=== PATIENT | female | born 1950 | race Caucasian/White ===

== ENCOUNTER 2016-05-30 13:42 | Inpatient (IN) ==
--- NOTE | 2016-05-30 15:03 | Emergency Department Note ---
Disposition Clinical Impression: Acute exacerbation of CHF (congestive heart failure) Qualifiers: Congestive heart failure type: unspecified congestive heart failure type Qualified Code(s): I50.9 - Heart failure, unspecified Disposition: Admitted As Inpatient Condition: Fair Referrals: Deny Thomas MD [Primary Care Provider] - Forms: ED Satisfaction Letter Time of Disposition: 18:10 SOB HPI - General Chief Complaint: ED Shortness of Breath/Dyspnea Stated Complaint: ELVIE x5 days Time Seen by Provider: 05/30/16 14:30 Source: patient Limitations: no limitations Nursing Notes Reviewed: Yes Vital Signs Reviewed: Yes - History of Present Illness [id number] hx of CHF Congenital HD subaortic membrane, patient has a history of diastolic heart failure, patient came here on the bus complaining of shortness of breath for the last 45 days. Patient has HCTZ, but does not take any Lasix for diuresis. Patient states that she has also had a productive cough for last couple of weeks and is concerned about pneumonia. Patient states that she is on BiPAP at night, but is not been on any oxygen previously. She has some chest pain a few days ago but currently denies any chest pain. Patient denies nausea vomiting diarrhea constipation. Pt Subjective Complaint: shortness of breath, cough, chest pain Onset (ago): day(s) (last night) Severity: mild Improves with: oxygen Known history of: congestive heart failure Associated symptoms: Reports: chest pain, cough. Denies: wheezing, sputum production Treatment prior to arrival: oxygen Cough present: No - Related Data Home Medications Medication Instructions Recorded Confirmed Albuterol Neb [Proventil Neb] 2.5 mg IH QID PRN 05/30/16 05/30/16 Albuterol Sulfate [Albuterol 2 puff IH Q6H PRN 05/30/16 05/30/16 Inhaler] Aspirin Enteric Coated [Aspirin EC] 81 mg PO DAILY 05/30/16 05/30/16 BuPROPion XL (24 HR) [Wellbutrin 150 mg PO BID 05/30/16 05/30/16 XL] Ergocalciferol (VITAMIN D2) 50,000 unit PO TH 05/30/16 05/30/16 [Vitamin D2] Flaxseed/Omega3,6,9/Fatty Acid 1 each PO BID 05/30/16 05/30/16 [Flax Seed Oil 1,300 mg Softgel] Hydrochlorothiazide 25 mg PO DAILY 05/30/16 05/30/16 [Hydrochlorothiazide] Insulin NPH Human Isophane 40 unit SQ BID 05/30/16 05/30/16 [Novolin N] Levothyroxine [Synthroid] 75 mcg PO 0630 05/30/16 05/30/16 Lisinopril [Zestril] 20 mg PO BID 05/30/16 05/30/16 Metformin [Glucophage] 500 mg PO BIDWM 05/30/16 05/30/16 Metoprolol [Lopressor] 25 mg PO BID 05/30/16 05/30/16 Multivit-Min/Folic Acid/Vit K1 1 each PO DAILY 05/30/16 05/30/16 [Multi For Her 50 Plus Softgel] Paroxetine HCl [Paroxetine HCl] 30 mg PO QAM 05/30/16 05/30/16 Pregabalin [Lyrica] 50 mg PO BID 05/30/16 05/30/16 Vitamin B Complex 1 each PO DAILY 05/30/16 05/30/16 Allergies Allergy/AdvReac Type Severity Reaction Status Date / Time cephalexin [From Keflex] Allergy Rash Verified 03/22/15 04:48 ciprofloxacin [From Cipro] Allergy Rash Verified 03/22/15 04:48 Sulfa (Sulfonamide Allergy Rash Verified 03/22/15 04:48 Antibiotics) tetanus immune globulin Allergy See Verified 03/22/15 04:48 Comments codeine AdvReac Hallucinati Verified 02/14/16 08:12 ng All systems ED: reviewed and negative except as stated. Constitutional: Denies: fever, chills Cardiovascular: Reports: as per HPI, chest pain. Denies: palpitations Respiratory: Reports: as per HPI, cough, dyspnea, sputum production. Denies: wheezes, hemoptysis Gastrointestinal: Denies: abdominal pain, nausea, vomiting Past Medical History - Past Medical History Attestation: Yes The following information was validated with the patient. Source: patient Medical history: Reports: asthma, CHF, COPD, diabetes, GERD, hypertension, kidney stones, thyroid disease, syncope Surgical history: Reports: hysterectomy, other Psychiatric history: Reports: anxiety, depression - Social History Smoking Status: Never smoker Smokeless Tobacco Status: No Alcohol use: Reports: none Drug use: Reports: none Physical Exam Constitutional: Bee sting male appears in no acute distress, is mildly uncomfortable, hypoxic with an O2 sat of 93% on 3 L. Neck: normal inspection, neck is supple, trachea midline no evidence of JVD. No hepatojugular reflex. Resp: Diminished breath sounds bilaterally at the bases, coarse crackles bibasilar CV: diminished heart sounds, regular rate and rhythm. GI: normal inspection, Soft, NTND, BS present Back: normal inspection, no tenderness to palpation Skin: No rashes, skin warm, dry, intact - General Limitations: no limitations General appearance: alert Course Course Narrative: 65-year-old female appears of CHF exacerbation versus pneumonia, chest pain workup ordered including chest x-ray and reassess the patient, I do suspect that she is mildly hypoxic, but she is able to rotate without oxygen she likely can be admitted to the hospital. - Reevaluation(s) Reevaluation #1: Chest x-ray shows bibasilar pleural effusions, elevated BNP, given her hypoxia will admit hospitalist for diuresis, given 60 mg IV diuretic, and Nitropaste will reassess patient. Time: 18:08 Vital Signs Temperature 97.8 F 05/30/16 13:48 Pulse Rate 60 05/30/16 13:48 Respiratory Rate 24 05/30/16 13:48 Blood Pressure 200/76 05/30/16 13:48 O2 Sat by Pulse Oximetry 92 L 05/30/16 13:48 Temperature 97.8 F 05/30/16 13:48 Pulse Rate 52 05/30/16 17:49 Respiratory Rate 20 05/30/16 17:49 Blood Pressure 157/69 05/30/16 17:49 O2 Sat by Pulse Oximetry 94 L 05/30/16 17:49 Oxygen Delivery Oxygen Delivery Nasal Cannula Shortness of Breath/Dyspnea - [facility] [place] Narrative Medical decision making narrative: 65-year-old female admitted for hypoxia, CHF exacerbation, diuresed given Nitropaste she did tolerate this well, admitted to the hospital service in stable condition at the time of ED disposition. - Differential Diagnosis Likely: acute exacerbation of chronic obstructive airways disease, congestive heart failure - Medical Records Medical records reviewed: Yes I reviewed the patient's medical records. - Lab Data Lab results reviewed: Yes I reviewed the patient's lab results. Result diagrams: 05/30/16 14:54 05/30/16 14:54 Lab Results 05/30/16 05/30/16 05/30/16 Range/Units 14:54 14:54 14:54 WBC 9.1 (4.3-11.1) K/mcL RBC 4.32 (3.82-4.97) M/mcL Hgb 12.0 (11.5-15.4) g/dL Hct 37.5 (35.3-44.9) % MCV 86.8 (83.0-100.0) fL MCH 27.8 L (28.0-33.3) pg MCHC 32.0 (31.6-35.5) g/dL RDW 15.7 H (11.5-14.5) % Plt Count 231 (140-400) K/mcL MPV 10.3 (9.4-12.4) fL Immature Gran % 0.3 (0-4) % Seg Neutrophils % 68.7 % Lymphocytes % 17.3 % Monocytes % 7.0 % Eosinophils % 5.5 % Basophils % 1.2 % Neutrophils # 6.3 (1.6-8.9) K/mcL Lymphocytes # 1.6 (0.6-4.6) K/mcL Monocytes # 0.6 (0.0-1.3) K/mcL Eosinophils # 0.5 (0.0-0.6) K/mcL Basophils # 0.1 (0.0-0.2) K/mcL Sodium 143 (136-145) mEq/L Potassium 4.4 (3.5-4.5) mEq/L Chloride 109 (98-109) mEq/L Carbon Dioxide 24 (19-29) mEq/L BUN 18 (7-20) mg/dL Creatinine 0.94 (0.57-1.11) mg/dL Est GFR ( Amer) > 60 (> 60) Est GFR (Non-Af Amer) 60 (> 60) BUN/Creatinine Ratio 19 (6-26) Glucose 83 (70-99) mg/dL Calculated Osmolality 297 (280-300) Calcium 9.0 (8.6-10.8) mg/dL Troponin I 0.01 (0-0.03) ng/mL B-Natriuretic Peptide (0-100) pg/mL 05/30/16 Range/Units 14:54 WBC (4.3-11.1) K/mcL RBC (3.82-4.97) M/mcL Hgb (11.5-15.4) g/dL Hct (35.3-44.9) % MCV (83.0-100.0) fL MCH (28.0-33.3) pg MCHC (31.6-35.5) g/dL RDW (11.5-14.5) % Plt Count (140-400) K/mcL MPV (9.4-12.4) fL Immature Gran % (0-4) % Seg Neutrophils % % Lymphocytes % % Monocytes % % Eosinophils % % Basophils % % Neutrophils # (1.6-8.9) K/mcL Lymphocytes # (0.6-4.6) K/mcL Monocytes # (0.0-1.3) K/mcL Eosinophils # (0.0-0.6) K/mcL Basophils # (0.0-0.2) K/mcL Sodium (136-145) mEq/L Potassium (3.5-4.5) mEq/L Chloride (98-109) mEq/L Carbon Dioxide (19-29) mEq/L BUN (7-20) mg/dL Creatinine (0.57-1.11) mg/dL Est GFR ( Amer) (> 60) Est GFR (Non-Af Amer) (> 60) BUN/Creatinine Ratio (6-26) Glucose (70-99) mg/dL Calculated Osmolality (280-300) Calcium (8.6-10.8) mg/dL Troponin I (0-0.03) ng/mL B-Natriuretic Peptide 469 H (0-100) pg/mL - Radiology Data Radiology results reviewed: Yes I reviewed the patient's radiology results. Chest X-Ray 05/30/16 14:06 IMPRESSION: Cardiomegaly. Lower lobe opacities which could represent vascular congestion. Bilateral pleural effusions. Infiltrates cannot be entirely excluded in the lung bases. Follow-up to resolution is suggested. D/ / 05/30/2016 15:57:47 Ava Zimmer MD / prashanth Interpreting Provider: Ava Zimmer MD - EKG Data EKG attestation: Yes I reviewed and interpreted this EKG. EKG shows normal: Reports: sinus rhythm Rate: Reports: bradycardia Rhythm: Reports: NSR (Has bradycardia ventricular rate 54 HI 136 QRS 93 QTc 423 left axis, no ST segment elevations or depressions) T wave inversions noted in: Reports: aVL Interpretation: Reports: unchanged when compared to prior tracing (date) ( Unchanged from previous EKG 12/2015) Attestation Statement - Attestation Attestation: I examined this patient and my medical decision-making was reviewed with the Resident Physician. I agree with the documented findings, disposition and treatment plan as described except to the extent set forth below. Exam not terribly convincing for HF but history suggests it, BNP is up from previous measurements, CXR suggestive of HF w effusions. Saturating 93% of 3LNC , not on home O2. Will give NTG, diurese, admit.
[2016-05-30 15:08] LABS: Basophils # 0.1 K/mcL (0.0-0.2); Basophils % 1.2 %; Eosinophils # 0.5 K/mcL (0.0-0.6); Eosinophils % 5.5 %; Hematocrit 37.5 % (35.3-44.9); Immature Granulocytes % 0.3 % (0-4); Lymphocytes # 1.6 K/mcL (0.6-4.6); Lymphocytes % 17.3 %; Mean Corpuscular Hemoglobin 27.8 pg (28.0-33.3); Mean Corpuscular Volume 86.8 fL (83.0-100.0); Mean Platelet Volume 10.3 fL (9.4-12.4); Monocytes # 0.6 K/mcL (0.0-1.3); Neutrophils # 6.3 K/mcL (1.6-8.9); Platelet Count 231 K/mcL (140-400); Red Blood Count 4.32 M/mcL (3.82-4.97); Red Cell Distribution Width 15.7 % (11.5-14.5); Segmented Neutrophils % 68.7 %
[2016-05-30 15:22] LABS: BUN/Creatinine Ratio 19 (6-26); Blood Urea Nitrogen 18 mg/dL (7-20); Carbon Dioxide 24 mEq/L (19-29); Chloride 109 mEq/L (98-109); Glucose 83 mg/dL (70-99); Osmolality,Calculated 297 (280-300); Potassium 4.4 mEq/L (3.5-4.5); Sodium 143 mEq/L (136-145); eGFR For African Americans > 60 (> 60); eGFR For Non-African Americans 60 (> 60)
[2016-05-30] MEDS ORDERED: Furosemide 40 MG/4 ML VIAL IVP ONE (16:52)
[2016-05-30] MEDS ORDERED: Nitroglycerin 1 INCH/GM PACKET TP STA (16:57)
[2016-05-30] MEDS ORDERED: Naloxone 0.4 MG/ML INJ IVP PRN (21:04)
[2016-05-30] MEDS ORDERED: Ondansetron 4 MG/2 ML VIAL IVP PRN (21:04)
[2016-05-30] MEDS ORDERED: methylPREDNISolone 125 MG/2 ML VIAL IVP STA (21:04)
[2016-05-30] MEDS ORDERED: *HR* OxyCODONE Immed Rel 5 MG TABLET PO PRN (21:04)
[2016-05-30] MEDS ORDERED: *HR* Morphine 2 MG/ML SYRINGE IVP PRN (21:04)
[2016-05-30] MEDS ORDERED: Albuterol 2.5 MG/3 ML NEBULIZER IH PRN (21:04)
[2016-05-30] MEDS ORDERED: Insulin NPH 100 UNIT/ML (x5UNIT) SQ SCH (21:15)
[2016-05-30] MEDS ORDERED: D5% in Water 1,000 ML IV PRN (22:00)
[2016-05-30] MEDS ORDERED: Dextrose Gel 15 GM PO PRN ×2 (22:00)
[2016-05-30] MEDS ORDERED: *HR* Dextrose 50 % in Water (Syg) 50 ML SYRINGE IVP PRN (22:00)
--- NOTE | 2016-05-30 22:05 | Internal Med History&Physical ---
Date of Encounter: 05/30/16 Time of Encounter: 22:00 Assessment and Plan (1) Acute and chronic respiratory failure with hypoxia Status: Acute . (2) Acute exacerbation of chronic obstructive pulmonary disease (COPD) Status: Acute . (3) Diastolic CHF with preserved left ventricular function, NYHA class 2 Status: Acute . (4) Morbid obesity with BMI of 40.0-44.9, adult Status: Chronic . (5) NIKOS (obstructive sleep apnea) Status: Chronic . (6) CPAP (continuous positive airway pressure) dependence Status: Chronic . Internal Medicine - H&P: HPI Chief complaint: Difficulty breathing Admitted From: Emergency Dept Plans for Post Hospital Care: Home History of present illness: Ms. Armas is a 65 year old female admitted with 45 days of progressive chest congestion and difficulty breathing. Symptoms worse in the last couple weeks with concern for possible pneumonia. She utilizes BiPAP at night. Is not on oxygen therapy continuously. Patient acknowledges midsternal chest discomfort cough positional dizziness and generalized malaise. 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 Initial diagnostic study suggests acute exacerbation of chronic CHF versus pneumonia with associated hypoxic respiratory failure. Systemic inflammatory response syndrome criteria are present at the time of admission. BNP is 469 troponin 0.01. Essentially shows normal opacities bilateral pleural effusions. Vascular congestion versus infiltrate cannot be excluded. EKG showed bradycardic on without acute ischemic changes. Workup and treatment will proceed comprehensively. The patient was visited and interviewed and examined. Cumulative laboratory and radiographic data base will be considered and discussed. Pertinent ancillary medical records including ECW and PCI documentation when available was reviewed and considered. Given the patient's presenting concerns, past medical history, clinical findings and symptoms, she is admitted at this time will undergo further evaluation and disposition. Orders were written as per Computerized physician order picker/assembler system.......................................................................... .................... Consultative opinion will be sought as clinical circumstances justify. Pain management needs will be addressed. Laboratory /radiographic data base will be updated as appropriate. Studies include: Cultures of blood and urine and sputum, CPK, coags, LDH, cardiac injury panel, BNP, UDS, UA, metabolic and hematologic panel, magnesium , phosphorus, ionized calcium, thyroid panel ,lipid profile, A1c, C-peptide, CRP, sedimentation rate, respiratory infection profile, respiratory virus panel, blood gas, lactic acid, serologies, etc. Precautions: Aspiration, fall, delirium protocol/surveillance initiated. Telemetry with continuous hemodynamic monitoring and pulse oximetry initiated. Empiric antibody coverage: Intravenous Rocephin and azithromycin pending culture data. Special studies: CT/CTA chest, chest x-ray, telemetry, EKG, 2D echo. Pulmonary toilet: Incentive spirometry, aerosol bronchodilator, mucolytic, antitussive, supplemental oxygen. Corticosteroid therapy. CPAP/BiPAP supplemental oxygen delivery employed. Aerosol Mucomyst therapy may be employed. Fluid and electrolyte repletion efforts will proceed. Careful attention to fluid balance and renal recovery will be emphasized. Avoidance of nephrotoxic exposure and adverse drug drug interaction in the setting of impaired renal function will be monitored closely. Acute coronary syndrome protocol/surveillance initiated. Acute heart failure protocols/surveillance initiated. Gentle diuresis with careful attention to fluid balance and hemodynamics. Strict input and output and daily weights. 1500 mL fluid restriction per 24 hours. Restricted diet, no added salt/ heart healthy diet. DVT and PUD prophylaxis initiated: PPI therapy, intermittent pneumatic cuffs. Subcutaneous heparin. Early ambulation will be encouraged. Immunization updates recommended. Influenza and pneumococcal vaccinations as part of ongoing preventative healthcare recommendations strongly recommended. Smoke cessation counseling briefly addressed. Patient is a nonsmoker. Advanced care directive discussion briefly addressed. Patient does not declare any healthcare restrictions at this time. Cardiovascular risk appraisal and cardiovascular risk reduction efforts will be emphasized. Physical /occupational therapy may be counseled to evaluate patient's function capacity and progressive mobility of her circumstances justify. Sliding scale insulin coverage, ADA dietary restraint and schedule an as-needed basis fingerstick glucose assessments were initiated. Nutrition/diabetes education counseling may be considered as circumstances justify. Outpatient medication schedules will be reviewed confirmed and facilitated as appropriate. Reconciliation of home treatments including adjustment substitutions and reintroduction into the treatment regimen as necessary maintenance therapies for chronic pre-existing medical conditions. Plan of care has been reviewed and discussed in detail with the patient. Questions addressed. Hospital course dictated by clinical findings, treatment response and potential consultative interventions. Patient is a risk for further acute clinical decline due to her age, chief complaints and comorbid conditions. Condition is serious. Prognosis is guarded. CODE STATUS is full. Past Med Surg Social Fam HX - Past Medical History Source: old records reviewed Medical history: arthritis, asthma, cardiomyopathy (Congenital HD subaortic membrane.), CHF, COPD (Bipap/Cpap dependent at night. NIKOS.), diabetes, GERD, hyperlipidemia, hypertension, kidney stones, osteoporosis (vit D def.), thyroid disease, syncope, other (DM periph neuropathy; RLS.) Psychiatric history: anxiety, depression - Past Surgical History Surgical History: hysterectomy, other - Social History Smoking Status: Never smoker Smokeless Tobacco Status: No Alcohol use: none Drug use: none Occupational status: retired Activity Level: Independent ambulation, Mostly sedentary Recent Out of Country Travel Within the Last 8 Weeks: No Exposure or Possible Exposure to Illness During Travel: No - Family History Mother Living Status: Hx Family Cardiac Disorders: Yes Hx Family Respiratory Disorders: Yes Hx Family Cancer: Yes (breast) Hx Family GI Disorders: No Hx Family Genitourinary Disorders: No Hx Family Endocrine Disorder: No Hx Family Musculoskeletal Disorders: No Hx Family Neuromuscular Disorders: Yes (TIA) Hx Family Neurologic Disorders: No Hx Family HEENT Disorders: No Hx Family Autoimmune Disorders: No Hx Family Reproductive Disorders: No Hx Family Psychosocial Disorders: No Hx Family Medical Disorders: No Father Living Status: Hx Family Cardiac Disorders: Yes (CHF) Hx Family Respiratory Disorders: No Hx Family Cancer: No Hx Family GI Disorders: No Hx Family Endocrine Disorder: No Hx Family Neuromuscular Disorders: No Hx Family Neurologic Disorders: Yes (parkinsons) Hx Family HEENT Disorders: No Hx Family Autoimmune Disorders: No Internal Medicine - H&P: Meds Albuterol Neb [Proventil Neb] 2.5 mg IH QID PRN 05/30/16 [History] Albuterol Sulfate [Albuterol Inhaler] 2 puff IH Q6H PRN 05/30/16 [History] Aspirin Enteric Coated [Aspirin EC] 81 mg PO DAILY 05/30/16 [History] BuPROPion XL (24 HR) [Wellbutrin Xl] 150 mg PO BID 05/30/16 [History] Ergocalciferol (VITAMIN D2) [Vitamin D2] 50,000 unit PO TH 05/30/16 [History] Flaxseed/Omega3,6,9/Fatty Acid [Flax Seed Oil 1,300 mg Softgel] 1 each PO BID [History] Hydrochlorothiazide 25 mg PO DAILY 05/30/16 [History] Insulin NPH Human Isophane [Novolin N] 40 unit SQ BID 05/30/16 [History] Levothyroxine [Synthroid] 75 mcg PO 0630 05/30/16 [History] Lisinopril [Zestril] 20 mg PO BID 05/30/16 [History] Metformin [Glucophage] 500 mg PO BIDWM 05/30/16 [History] Metoprolol [Lopressor] 25 mg PO BID 05/30/16 [History] Multivit-Min/Folic Acid/Vit K1 [Multi For Her 50 Plus Softgel] 1 each PO DAILY 05/30/16 [History] Paroxetine HCl 30 mg PO QAM 05/30/16 [History] Pregabalin [Lyrica] 50 mg PO BID 05/30/16 [History] Vitamin B Complex 1 each PO DAILY 05/30/16 [History] Doxycycline 100 mg PO BID #2 capsule 06/03/16 [Rx] Allergies cephalexin [From Keflex] Allergy (Verified 03/22/15 04:48) Rash ciprofloxacin [From Cipro] Allergy (Verified 03/22/15 04:48) Rash Sulfa (Sulfonamide Antibiotics) Allergy (Verified 03/22/15 04:48) Rash tetanus immune globulin Allergy (Verified 03/22/15 04:48) See Comments swelling of arm codeine Adverse Reaction (Verified 02/14/16 08:12) Hallucinating All Systems PM: A 10-system review of systems was performed and is negative for pertinent findings except as documented above in the HPI. - Constitutional Constitutional: as per HPI, malaise, no chills, no fever(s), no night sweats - EENT Eyes: as per HPI, no change in vision, no discharge, no pain, no photophobia Ears: as per HPI, no ear discharge, no ear pain, no tinnitus Nose, mouth and throat: as per HPI, nasal congestion, post-nasal drip, no dysphagia, no nasal discharge, no neck pain, no sore throat - Cardiovascular Cardiovascular ROS IM: as per HPI, no chest pain, no diaphoresis, no dyspnea, no lightheadedness, no palpitations, no syncope - Respiratory Respiratory: as per HPI, cough, dyspnea, dyspnea on exertion, wheezing, chest congestion, no excessive phlegm production - Gastrointestinal Gastrointestinal: as per HPI, no abdominal pain, no diarrhea, no hematemesis, no hematochezia, no melena, no nausea, no vomiting - Genitourinary Genitourinary: as per HPI, no change in urinary stream, no dysuria, no flank pain, no hematuria - Musculoskeletal Musculoskeletal ROS IM: as per HPI, no numbness, no tingling - Integumentary Integumentary IM: as per HPI, no rash, no unusual bruising - Neurological Neurological ROS: as per HPI, no confusion, no convulsions, no focal weakness, no numbness, no tingling, no tremor(s) - Psychiatric Psychiatric: as per HPI - Endocrine Endocrine IM: as per HPI - Hematologic/Lymphatic Hematologic/Lymphatic: as per HPI, no easy bruising - Allergic/Immunologic Allergic/Immunologic: as per HPI - Constitutional Vitals: Temp Pulse Resp BP Pulse Ox 97.7 F 57 20 141/49 93 L 05/30/16 20:29 05/30/16 20:29 05/30/16 20:29 05/30/16 20:29 05/30/16 20:29 General appearance: Present: cooperative, mild distress, A&O X 3, morbidly obese , answers questions appropriately - Head Head exam: Present: atraumatic, normocephalic - Eye Eye exam: Present: EOMI, PERRL, conjuntiva pink, sclera anicteric Pupils: Present: normal accommodation, PERRL - ENT ENT exam: Present: mucous membranes moist, normal oropharynx - Neck Neck exam general surgery: Present: full ROM, supple, trachea midline. Absent: lymphadenopathy - Respiratory Respiratory exam: Present: accessory muscle use, chest wall tenderness, decreased breath sounds, wheezes. Absent: CTAB, rales, rhonchi - Cardiovascular Cardiovascular exam: Present: distant heart sounds, RRR, +S1, +S2. Absent: diastolic murmur, gallop, rubs, systolic murmur - GI/Abdominal GI/Abdominal exam: Present: normal bowel sounds, soft, no peritoneal signs. Absent: distended, tenderness - Extremities Exam Extremities exam: Present: warm, radial pulses palpable and symetrical. Absent : calf tenderness, cyanotic, pedal edema - Neurological Exam Neurological exam: Present: alert, CN II-XII intact, oriented X3, no focal deficits. Absent: pronater drift, facial droop, speech deficit - Psychiatric Psychiatric exam: Present: normal affect, normal mood - Skin Skin exam: Present: dry, intact Internal Med - H&P Results - Labs CBC & Chem 7: 06/03/16 08:08 06/03/16 08:08 Labs: Vital Signs Temp Pulse Resp BP Pulse Ox 05/30/16 20:29 97.7 F 57 20 141/49 93 L 05/30/16 19:51 95 05/30/16 19:25 18 154/64 05/30/16 18:09 62 16 168/62 95 05/30/16 17:49 52 20 157/69 94 L 05/30/16 15:48 52 16 166/51 95 05/30/16 14:32 94 L 05/30/16 13:48 97.8 F 60 24 200/76 92 L Intake and Output 05/30/16 05/30/16 05/30/16 07:59 15:59 23:59 Intake Total 120 / 120 Output Total 0 / 0 Balance 120 / 120 Intake: Oral 120 / 120 Output: Urine 0 / 0 Other: Weight 115.666 kg 115.802 kg Blood Glucose* 75 Patient Weight 05/30/16 23:59 Weight 115.802 kg Short CBC 05/30/16 Range/Units 14:54 WBC 9.1 (4.3-11.1) K/mcL Hgb 12.0 (11.5-15.4) g/dL Hct 37.5 (35.3-44.9) % Plt Count 231 (140-400) K/mcL Neutrophils # 6.3 (1.6-8.9) K/mcL BMP 05/30/16 Range/Units 14:54 Sodium 143 (136-145) mEq/L Potassium 4.4 (3.5-4.5) mEq/L Chloride 109 (98-109) mEq/L Carbon Dioxide 24 (19-29) mEq/L BUN 18 (7-20) mg/dL Creatinine 0.94 (0.57-1.11) mg/dL Glucose 83 (70-99) mg/dL Calcium 9.0 (8.6-10.8) mg/dL Cardiac Enzymes 05/30/16 Range/Units 14:54 Troponin I 0.01 (0-0.03) ng/mL Allergies Allergy/AdvReac Type Severity Reaction Status Date / Time cephalexin [From Keflex] Allergy Rash Verified 03/22/15 04:48 ciprofloxacin [From Cipro] Allergy Rash Verified 03/22/15 04:48 Sulfa (Sulfonamide Allergy Rash Verified 03/22/15 04:48 Antibiotics) tetanus immune globulin Allergy See Verified 03/22/15 04:48 Comments codeine AdvReac Hallucinati Verified 02/14/16 08:12 ng - Impressions Abnormal lab results MCH 27.8 pg (28.0-33.3) L 05/30/16 14:54 RDW 15.7 % (11.5-14.5) H 05/30/16 14:54 B-Natriuretic Peptide 469 pg/mL (0-100) H 05/30/16 14:54 Laboratory Results WBC 9.1 K/mcL (4.3-11.1) 05/30/16 14:54 RBC 4.32 M/mcL (3.82-4.97) 05/30/16 14:54 Hgb 12.0 g/dL (11.5-15.4) 05/30/16 14:54 Hct 37.5 % (35.3-44.9) 05/30/16 14:54 MCV 86.8 fL (83.0-100.0) 05/30/16 14:54 MCH 27.8 pg (28.0-33.3) L 05/30/16 14:54 MCHC 32.0 g/dL (31.6-35.5) 05/30/16 14:54 RDW 15.7 % (11.5-14.5) H 05/30/16 14:54 Plt Count 231 K/mcL (140-400) 05/30/16 14:54 MPV 10.3 fL (9.4-12.4) 05/30/16 14:54 Immature Gran % 0.3 % (0-4) 05/30/16 14:54 Seg Neutrophils % 68.7 % 05/30/16 14:54 Lymphocytes % 17.3 % 05/30/16 14:54 Monocytes % 7.0 % 05/30/16 14:54 Eosinophils % 5.5 % 05/30/16 14:54 Basophils % 1.2 % 05/30/16 14:54 Neutrophils # 6.3 K/mcL (1.6-8.9) 05/30/16 14:54 Lymphocytes # 1.6 K/mcL (0.6-4.6) 05/30/16 14:54 Monocytes # 0.6 K/mcL (0.0-1.3) 05/30/16 14:54 Eosinophils # 0.5 K/mcL (0.0-0.6) 05/30/16 14:54 Basophils # 0.1 K/mcL (0.0-0.2) 05/30/16 14:54 Sodium 143 mEq/L (136-145) 05/30/16 14:54 Potassium 4.4 mEq/L (3.5-4.5) 05/30/16 14:54 Chloride 109 mEq/L (98-109) 05/30/16 14:54 Carbon Dioxide 24 mEq/L (19-29) 05/30/16 14:54 BUN 18 mg/dL (7-20) 05/30/16 14:54 Creatinine 0.94 mg/dL (0.57-1.11) 05/30/16 14:54 Est GFR ( Amer) > 60 (> 60) 05/30/16 14:54 Est GFR (Non-Af Amer) 60 (> 60) 05/30/16 14:54 BUN/Creatinine Ratio 19 (6-26) 05/30/16 14:54 Glucose 83 mg/dL (70-99) 05/30/16 14:54 Calculated Osmolality 297 (280-300) 05/30/16 14:54 Calcium 9.0 mg/dL (8.6-10.8) 05/30/16 14:54 Troponin I 0.01 ng/mL (0-0.03) 05/30/16 14:54 B-Natriuretic Peptide 469 pg/mL (0-100) H 05/30/16 14:54 Impressions Chest X-Ray 05/30/16 14:06 IMPRESSION: Cardiomegaly. Lower lobe opacities which could represent vascular congestion. Bilateral pleural effusions. Infiltrates cannot be entirely excluded in the lung bases. Follow-up to resolution is suggested. D/ / 05/30/2016 15:57:47 Ava Zimmer MD / prashanth Interpreting Provider: Ava Zimmer MD - Attending Attestation My signature below is to certify that this patient is under my care and that I, or nurse practitioner, or a physician's operator assistant i cementing working with me, has a face-to -face encounter with this patient. Allergies cephalexin [From Keflex] Allergy (Verified 03/22/15 04:48) Rash ciprofloxacin [From Cipro] Allergy (Verified 03/22/15 04:48) Rash Sulfa (Sulfonamide Antibiotics) Allergy (Verified 03/22/15 04:48) Rash tetanus immune globulin Allergy (Verified 03/22/15 04:48) See Comments swelling of arm codeine Adverse Reaction (Verified 02/14/16 08:12) Hallucinating Home Medications Medication Instructions Recorded Confirmed Type Albuterol Neb [Proventil Neb] 2.5 mg IH QID PRN 05/30/16 05/30/16 History Albuterol Sulfate [Albuterol 2 puff IH Q6H PRN 05/30/16 05/30/16 History Inhaler] Aspirin Enteric Coated [Aspirin EC] 81 mg PO DAILY 05/30/16 05/30/16 History BuPROPion XL (24 HR) [Wellbutrin 150 mg PO BID 05/30/16 05/30/16 History XL] Ergocalciferol (VITAMIN D2) 50,000 unit PO TH 05/30/16 05/30/16 History [Vitamin D2] Flaxseed/Omega3,6,9/Fatty Acid 1 each PO BID 05/30/16 05/30/16 History [Flax Seed Oil 1,300 mg Softgel] Hydrochlorothiazide 25 mg PO DAILY 05/30/16 05/30/16 History [Hydrochlorothiazide] Insulin NPH Human Isophane 40 unit SQ BID 05/30/16 05/30/16 History [Novolin N] Levothyroxine [Synthroid] 75 mcg PO 0630 05/30/16 05/30/16 History Lisinopril [Zestril] 20 mg PO BID 05/30/16 05/30/16 History Metformin [Glucophage] 500 mg PO BIDWM 05/30/16 05/30/16 History Metoprolol [Lopressor] 25 mg PO BID 05/30/16 05/30/16 History Multivit-Min/Folic Acid/Vit K1 1 each PO DAILY 05/30/16 05/30/16 History [Multi For Her 50 Plus Softgel] Paroxetine HCl [Paroxetine HCl] 30 mg PO QAM 05/30/16 05/30/16 History Pregabalin [Lyrica] 50 mg PO BID 05/30/16 05/30/16 History Vitamin B Complex 1 each PO DAILY 05/30/16 05/30/16 History I & O 05/27/16 05/28/16 05/29/16 05/30/16 23:59 23:59 23:59 23:59 Intake Total 120 / 120 Output Total 0 / 0 Balance 120 / 120 Weight 115.802 kg Intake: Oral 120 / 120 Output: Urine 0 / 0 Other: Blood Glucose* 75 Medications Acetaminophen (Tylenol) 650 mg PO Q6HR PRN PRN Reason: Mild Pain (1-3) Stop: 11/29/16 21:05 Albuterol Sulfate (Proventil Neb) 2.5 mg IH Q2H PRN PRN Reason: Shortness Of Breath/Wheezing Stop: 11/29/16 21:05 Albuterol/Ipratropium (Duoneb) 3 ml IH QIDR [facility] Stop: 11/29/16 23:01 Aspirin (Aspirin Ec) 81 mg PO DAILY ALONSO Stop: 11/30/16 09:01 Bumetanide (Bumex) 0.5 mg IVP BIDDIURETIC ALONSO Stop: 11/30/16 08:01 Bupropion HCl (Wellbutrin Sr) 150 mg PO BID [facility] Stop: 11/30/16 09:01 Dextrose/Water (Dextrose 50% (Syg)) 25 ml IVP AD PRN PRN Reason: Hypoglycemia Stop: 11/29/16 22:01 Docusate Sodium (Colace) 100 mg PO BID PRN PRN Reason: Constipation Stop: 11/29/16 21:05 Doxycycline Hyclate (Doxycycline) 100 mg PO BID ALONSO Stop: 11/29/16 21:16 Famotidine (Pepcid) 20 mg PO BID [facility] Stop: 11/29/16 21:16 Glucagon (Glucagen) 1 mg IM ONCE PRN PRN Reason: Hypoglycemia Stop: 11/29/16 22:01 Glucose (Gluctose) 15 gm PO ONCE PRN PRN Reason: Hypoglycemia Stop: 11/29/16 22:01 Glucose (Gluctose) 30 gm PO ONCE PRN PRN Reason: Hypoglycemia Stop: 11/29/16 22:01 Dextrose (Dextrose 5%) 1,000 mls @ 100 mls/hr IV CONT PRN PRN Reason: HYPOGLYCEMIA Stop: 11/29/16 22:01 Insulin Human Lispro (Humalog) 0 units SQ TIDAC [facility] PRN Reason: Protocol Stop: 11/30/16 07:31 Insulin Human Lispro (Humalog) 0 units SQ HS [facility] PRN Reason: Protocol Stop: 11/29/16 22:01 Insulin Human NPH (Humulin N) 40 unit SQ BID [facility] Stop: 11/29/16 21:16 Levothyroxine Sodium (Synthroid) 75 mcg PO 0630 [facility] Stop: 11/30/16 06:31 Lisinopril (Zestril) 20 mg PO BID [facility] PRN Reason: Protocol Stop: 11/30/16 09:01 Metoprolol Tartrate (Lopressor) 25 mg PO BID [facility] Stop: 11/29/16 21:16 Morphine Sulfate (Morphine Sulfate) 2 mg IVP Q4HR PRN PRN Reason: Severe Pain (7-10) Stop: 11/29/16 21:05 Naloxone HCl (Narcan) 0.4 mg IVP Q2MIN PRN PRN Reason: Opioid Reversal Stop: 11/29/16 21:05 Ondansetron HCl (Zofran) 4 mg IVP Q8HR PRN PRN Reason: Nausea And Vomiting Stop: 11/29/16 21:05 Oxycodone HCl (Roxicodone) 5 mg PO Q6HR PRN PRN Reason: Moderate Pain (4-6) Stop: 11/29/16 21:05 Paroxetine HCl (Paxil) 30 mg PO QAM [facility] PRN Reason: Protocol Stop: 11/30/16 09:01 Prednisone (Prednisone) 40 mg PO DAILY [facility] Stop: 11/30/16 09:01 Pregabalin (Lyrica) 50 mg PO BID [facility] Stop: 11/29/16 21:16 Discontinued Medications Furosemide (Lasix) 60 mg IVP ONCE ONE Stop: 05/30/16 16:53 Last Admin: 03/15/17 17:44 Dose: 60 mg Methylprednisolone (Solu-Medrol) 125 mg IVP ONCE STA Stop: 05/30/16 21:05 Nitroglycerin (Nitroglycerin) 2 inch TP ONCE STA Stop: 05/30/16 16:58 Last Admin: 05/30/16 17:43 Dose: 2 inch Nursing Notes 05/30/16 21:18 Transport Report by Akanksha Plunkett Date: 05/30/16 Transport Method: Stretcher cephalexin [From Keflex] Allergy (Verified 03/22/15 04:48) Rash ciprofloxacin [From Cipro] Allergy (Verified 03/22/15 04:48) Rash Sulfa (Sulfonamide Antibiotics) Allergy (Verified 03/22/15 04:48) Rash tetanus immune globulin Allergy (Verified 03/22/15 04:48) See Comments codeine Adverse Reaction (Verified 02/14/16 08:12) Hallucinating Resuscitation Status Full Code 05/30/16 14:06 ECG 12 lead ECG [ECG] Stat Mode Of Transportation: Ambulatory Reason For Exam: SOB Order Doctor: Branden Myrick Exam Performed At:: [facility] 05/30/16 21:02 CTA chest [CT angio chest] [CT] Stat Comment: Mode Of Transportation: Stretcher Reason For Exam: acute hypoxic resp failure Order Doctor: Sage Hampton Exam Performed At:: [facility] Additional Notes/Special Instructions: TK Allergic to Contrast: No Oxygen: Nasal Cannula 3 Mental Status: Alert Fall Risk: Isolation: Nurse Required for Transport: No ___ Yes Limb Restrictions: No ___ Yes Behavioral issue/Risk for Elopement: No ___ Yes Telemetry Room Notification: Destination: MRI XRAY STRESS ULTRASOUND CT DIALYSIS ENDO OTHER: Depart Time: Nurse: Transporter: Arrive Time: Received by: ___ Return Time: Nurse: Transporter: ] Initialized on 05/30/16 21:18 - END OF NOTE Orders 05/30/16 14:06 XR chest 2V [XR] Stat Mode Of Transportation: Ambulatory Reason For Exam: SOB Order Doctor: Branden Myrick Exam Performed At:: [facility] Additional Notes/Special Instructions: WR@1411@1418...21...@1436 RN/DR, RN/ LAB@1500,@1516 DOC ECG 12 lead ECG [ECG] Stat Mode Of Transportation: Ambulatory Reason For Exam: SOB Order Doctor: Branden Myrick Exam Performed At:: [facility] 05/30/16 14:07 12 lead ECG assessment [RC] NOW 05/30/16 14:54 B-Type Natriuretic Peptide Stat Comment: Specimen: Send someone from the department to collect Basic Metabolic Panel Stat Comment: Specimen: Send someone from the department to collect Complete Blood Count [HEME] Stat Comment: Specimen: Send someone from the department to collect Troponin I Stat Comment: Specimen: Send someone from the department to collect 05/30/16 16:[address] Stat Comment: Reason for Visit: CHF exacerbation Furosemide [Lasix] 60 mg IVP ONCE ONE 05/30/16 16:57 Nitroglycerin 2 inch TP ONCE STA 05/30/16 17:51 Rapid Influenza [Influenza A/B Antigen] [VIR] Stat Comment: ASA Source: Nasopharyngeal Specimen: Send someone from the department to collect Specimen Description: 05/30/16 20:10 Consult to Pastoral Services [CONS] Routine Comment: 05/30/16 21:02 CTA chest [CT angio chest] [CT] Stat Comment: Mode Of Transportation: Stretcher Reason For Exam: acute hypoxic resp failure Order Doctor: Sage Hampton Exam Performed At:: [facility] Additional Notes/Special Instructions: TK Allergic to Contrast: No 05/30/16 21:04 CHF discharge checklist [RC] .atdischarge COPD Discharge Checklist [RC] .atdischarge Cardiac monitoring [RC] .ONCE Cardiac monitoring [RC] .ONCE Head of bed elevation [RC] .ONCE Head of bed elevation [RC] .ONCE Measure intake and output [RC] qshift Peripheral IV [RC] CONT Vital Signs Assessment [RC] Q4H Consult to Nurse Navigator [CONS] Routine Comment: Consult to Nurse Navigator [CONS] Routine Comment: Lactic Acid ([facility] Only) Stat Comment: Specimen: Send someone from the department to collect Acetaminophen [Tylenol] 650 mg PO Q6HR PRN Albuterol Neb [Proventil Neb] 2.5 mg IH Q2H PRN Docusate [Colace] 100 mg PO BID PRN MethylPREDNISolone [Solu-MEDROL] 125 mg IVP ONCE STA Morphine [Morphine Sulfate] 2 mg IVP Q4HR PRN Naloxone [Narcan] 0.4 mg IVP Q2MIN PRN Ondansetron [Zofran] 4 mg IVP Q8HR PRN OxyCODONE Immed Rel [Roxicodone] 5 mg PO Q6HR PRN Resuscitation Status: Active [RES] Routine Comment: Resuscitation Status: Full Code 05/30/16 21:05 Placement to Observation Routine Physician Instructions: Reason for Visit: Difficulty breathing Is VTE Prophylaxis Indicated?: Yes 05/30/16 21:06 Bed rest w/bathroom privileges [RC] .PRN Cardiac Monitoring Med/Surg [RC] .CONT Telemetry Reason: Acute Heart Failure Continuous pulse oximetry [RC] CONT Comment: Measure intake and output [RC] QSHIFT Measure weight [RC] DAILY RT has an order or consult [RC] NOW 05/30/16 21:07 Oxygen via nasal cannula Nasal Cannula 2 lpm Comment: Titrate O2 to main O2 sat greater than: 92% 05/30/16 21:08 Continuous pulse oximetry [RC] .ONCE Comment: 05/30/16 21:09 Culture,Sputum with Gram Stain [RM] Routine Comment: ASA Source: Sputum Specimen: Send someone from the department to collect Specimen Description: 05/30/16 21:10 BIPAP [RC] .PRN 05/30/16 21:12 Aspiration precautions [RC] .CONTINUOUS Falls precautions [RC] ONCE Respiratory Infection Panel [MOLMIC] Stat Specimen: Send someone from the department to collect Venous Blood Gas Stat Comment: Specimen: Send someone from the department to collect Viral Culture,Respiratory [RM] Stat Comment: [facility] Source: Nasopharyngeal Specimen: Send someone from the department to collect Specimen Description: 05/30/16 21:15 Troponin I Q6H Comment: Specimen: Send someone from the department to collect Doxycycline 100 mg PO BID Famotidine [Pepcid] 20 mg PO BID Insulin NPH, HUMAN [HumuLIN N] 40 unit SQ BID Metoprolol [Lopressor] 25 mg PO BID Pregabalin [Lyrica] 50 mg PO BID 05/30/16 22:00 Glucose, blood poc measurement [RC] ACHS Hypoglycemia Treatment Orders [RC] .once Notify provider [RC] once Physician Instructions: Consult to Seedling Sorter [CONS] Routine Comment: Hgb A1C Routine Specimen: Send someone from the department to collect Comment: @ 100 MLS/HR [prn Hypoglycemia] D5% in Water [Dextrose 5%] 1,000 ml IV CONT Dextrose 50 % in Water (Syg) [Dextrose 50% (Syg)] 25 ml IVP AD PRN Dextrose Gel [Gluctose] 15 gm PO ONCE PRN Dextrose Gel [Gluctose] 30 gm PO ONCE PRN Glucagon, Human Recombinant [GlucaGen] 1 mg IM ONCE PRN Insulin LISPRO [HumaLOG] See Protocol SQ HS 05/30/16 23:00 Ipratropium/Albuterol Neb [Duoneb] 3 ml IH QIDR 05/30/16 Dinner Cardiac Diet Diet Modifications: 05/31/16 03:15 Troponin I Q6H Comment: Specimen: Send someone from the department to collect 05/31/16 04:00 Activated Partial Thrombo Time [COAG] AM 0400 Comment: Specimen: Send someone from the department to collect Complete Blood Count [HEME] AM 0400 Comment: Specimen: Send someone from the department to collect Comprehensive Metabolic Panel AM 0400 Comment: Specimen: Send someone from the department to collect Lipid Panel AM 0400 Comment: Specimen: Send someone from the department to collect Magnesium AM 0400 Comment: Specimen: Send someone from the department to collect Phosphorous AM 0400 Comment: Specimen: Send someone from the department to collect Prothrombin Time INR [COAG] AM 0400 Comment: Specimen: Send someone from the department to collect Thyroid Stimulating Hormone AM 0400 Comment: Specimen: Send someone from the department to collect Urinalysis reflex Microscopic [URIN] AM 0400 Comment: Specimen: Send someone from the department to collect 05/31/16 06:30 Levothyroxine [Synthroid] 75 mcg PO 0630 05/31/16 07:30 Insulin LISPRO [HumaLOG] See Protocol SQ TIDAC 05/31/16 08:00 Bumetanide [Bumex] 0.5 mg IVP BIDDIURETIC 05/31/16 09:00 Aspirin Enteric Coated [Aspirin EC] 81 mg PO DAILY BuPROPion SR (12 HR) [Wellbutrin SR] 150 mg PO BID Lisinopril [Zestril] 20 mg PO BID Paroxetine [Paxil] 30 mg PO QAM PredniSONE 40 mg PO DAILY 05/31/16 09:15 Troponin I Q6H Comment: Specimen: Send someone from the department to collect 05/31/16 Breakfast Diabetic Diet Diet Modifications: Patient Problems Acute and chronic respiratory failure with hypoxia (Acute) Acute exacerbation of CHF (congestive heart failure) (Acute) Acute exacerbation of chronic obstructive pulmonary disease (COPD) (Acute) Diastolic CHF with preserved left ventricular function, NYHA class 2 (Acute) Morbid obesity with BMI of 40.0-44.9, adult (Acute) Vital Signs Temp Pulse Resp BP Pulse Ox 05/30/16 20:29 97.7 F 57 20 141/49 93 L 05/30/16 19:51 95 05/30/16 19:25 18 154/64 05/30/16 18:09 62 16 168/62 95 05/30/16 17:49 52 20 157/69 94 L 05/30/16 15:48 52 16 166/51 95 05/30/16 14:32 94 L 05/30/16 13:48 97.8 F 60 24 200/76 92 L Laboratory Results 05/30/16 05/30/16 05/30/16 Range/Units 14:54 14:54 14:54 WBC 9.1 (4.3-11.1) K/mcL RBC 4.32 (3.82-4.97) M/mcL Hgb 12.0 (11.5-15.4) g/dL Hct 37.5 (35.3-44.9) % MCV 86.8 (83.0-100.0) fL MCH 27.8 L (28.0-33.3) pg MCHC 32.0 (31.6-35.5) g/dL RDW 15.7 H (11.5-14.5) % Plt Count 231 (140-400) K/mcL MPV 10.3 (9.4-12.4) fL Immature Gran % 0.3 (0-4) % Seg Neutrophils % 68.7 % Lymphocytes % 17.3 % Monocytes % 7.0 % Eosinophils % 5.5 % Basophils % 1.2 % Neutrophils # 6.3 (1.6-8.9) K/mcL Lymphocytes # 1.6 (0.6-4.6) K/mcL Monocytes # 0.6 (0.0-1.3) K/mcL Eosinophils # 0.5 (0.0-0.6) K/mcL Basophils # 0.1 (0.0-0.2) K/mcL Sodium 143 (136-145) mEq/L Potassium 4.4 (3.5-4.5) mEq/L Chloride 109 (98-109) mEq/L Carbon Dioxide 24 (19-29) mEq/L BUN 18 (7-20) mg/dL Creatinine 0.94 (0.57-1.11) mg/dL Est GFR ( Amer) > 60 (> 60) Est GFR (Non-Af Amer) 60 (> 60) BUN/Creatinine Ratio 19 (6-26) Glucose 83 (70-99) mg/dL Calculated Osmolality 297 (280-300) Calcium 9.0 (8.6-10.8) mg/dL Troponin I 0.01 (0-0.03) ng/mL B-Natriuretic Peptide (0-100) pg/mL 05/30/16 Range/Units 14:54 WBC (4.3-11.1) K/mcL RBC (3.82-4.97) M/mcL Hgb (11.5-15.4) g/dL Hct (35.3-44.9) % MCV (83.0-100.0) fL MCH (28.0-33.3) pg MCHC (31.6-35.5) g/dL RDW (11.5-14.5) % Plt Count (140-400) K/mcL MPV (9.4-12.4) fL Immature Gran % (0-4) % Seg Neutrophils % % Lymphocytes % % Monocytes % % Eosinophils % % Basophils % % Neutrophils # (1.6-8.9) K/mcL Lymphocytes # (0.6-4.6) K/mcL Monocytes # (0.0-1.3) K/mcL Eosinophils # (0.0-0.6) K/mcL Basophils # (0.0-0.2) K/mcL Sodium (136-145) mEq/L Potassium (3.5-4.5) mEq/L Chloride (98-109) mEq/L Carbon Dioxide (19-29) mEq/L BUN (7-20) mg/dL Creatinine (0.57-1.11) mg/dL Est GFR ( Amer) (> 60) Est GFR (Non-Af Amer) (> 60) BUN/Creatinine Ratio (6-26) Glucose (70-99) mg/dL Calculated Osmolality (280-300) Calcium (8.6-10.8) mg/dL Troponin I (0-0.03) ng/mL B-Natriuretic Peptide 469 H (0-100) pg/mL Assessments/Treatments 12 lead ECG assessment Start: 05/30/16 14: 07 Freq: NOW Status: Complete Document 05/30/16 14:33 NEYMAR (Rec: 05/30/16 14:34 ANK [id number]) EKG Time EKG Completed 14:32 EKG performed by Zuri EKG shown to and signed by Cardiac monitoring Start: 05/30/16 13: 51 Freq: Status: Active Document 05/30/16 14:25 ANK (Rec: 05/30/16 14:31 ANK [id number]) Cardiac Monitoring Heart Rate 66 Monitoring Method Telemetry Rhythm Sinus Rhythm Monitor Number [id number] ED Discharge Assessment Start: 05/30/16 13: 51 Freq: Status: Active Document 05/30/16 19:25 ANK (Rec: 05/30/16 19:28 ANK [id number]) ED Discharge Assessment ED Discharge Disposition Admitted ED Condition on Discharge Good Med Rec/Patient Pharmacy Completed? Yes Mode of Discharge Stretcher Admitted to 2A Bed assigned 37 Transported by automotive exhaust emissions technician Transported with monitor Report given to Nurse Care transferred to (name/credentials) Pre[place] Information relayed patient's care treatments medications given condition recent/anticipated changes Clinical Documentation Summary Provided Yes Pain Scale 0 Pain Scale Used Standard (1-10) Blood Pressure 154/64 Heart rate 66 Respiratory Rate 18 Oxygen Delivery Nasal Cannula Oxygen Saturation 95 Critical Care Minutes 0 ED Shortness of Breath Assessment Start: 05/30/16 13: 51 Freq: Status: Active Document 05/30/16 14:25 ANK (Rec: 05/30/16 14:31 NEYMAR [id number]) Shortness of Breath Sepsis Infection Criteria Present none Sepsis SIRS Criteria none Sepsis Screen No Definite Risk Symptoms/Complaint Shortness of Breath Onset 5 days Duration Constant Severity Moderate Context History/simular sympoms Known History COPD Asthma Diabetes Improves With Upright Position Worsens With Lying Flat Exertion Movement Associated Symptoms Pain With Inspiration Cough Wheezing Sputum Production Lower Extremity Pain Treatment Prior to Arrival None Chest Pain Intensity (out of 10) 0 Respiratory Depth Shallow Effort Short of Breath Anterior & Posterior Bilateral Throughout Breath Sounds Diminished Expiratory Wheezing Cough Description Voluntary Productive Frequency Intermittent Bilateral Lower Extremity Edema Type None Level Of Consciousness Awake Alert Appropriate Patient Orientation Person Place Time Patient Behavior Appropriate Ability to Follow Directions Excellent Impaired Cognition No Skin Temperature Warm Skin Moisture Dry Skin Turgor Elastic Capillary Refill < 3 Seconds Fall Precautions Acute Start: 05/30/16 19: 49 Freq: Q12H Status: Active Document 05/30/16 19:49 EMQ (Rec: 05/30/16 19:52 EMQ [id number]) [facility] Fall Risk Assessment Tool High Fall Risk-Implement High Fall Risk History of more than one fall interventions per protocol within 6 months before admission Fall Risk Category High Risk Fall Risk Interventions Low Risk Interventions Bed in lowest position Top side rails up x 2 Secure brake on bed Use properly fitting non-skid footwear Call light and frequently needed objects within reach Encourage patients/families to call for assistance when needed Fall education including risk assessment, injury risk and routine/ Inspect environment for safety and communication risk Supervise and assist with toileting/ADLs as needed Moderate Risk Interventions Institue fall-risk tooklit ( yellow flag, yellow non-skid socks and High Risk Interventions Remain with patient while toileting Flu Vaccine Screen Start: 05/30/16 18: 50 Freq: Status: Active Document 05/30/16 19:58 EMQ (Rec: 05/30/16 19:58 EMQ [id number]) Flu Vaccine Screen Flu Vaccine Contraindications Previously Received Current Flu Season Vaccine Information Sheet Given(Version Yes 10/22/2014) Patient meets criteria for vaccination No and consents to receive it Glucose, blood point of care measurement Start: 05/30/16 20: 43 Freq: Status: Active Document 05/30/16 20:43 TLS (Rec: 05/30/16 20:44 TLS [id number]) Blood Glucose Assessment Blood Glucose* 75 Hypoglycemia Symptoms None Hyperglycemia Symptoms None Action Taken RN notifyied IV-Invasive Line Management Start: 05/30/16 19: 49 Freq: Q4H Status: Active Document 05/30/16 19:51 EMQ (Rec: 05/30/16 22:02 EMQ [id number]) IV/Invasive Line Assessment Left Antecubital Date of Insertion 05/30/16 Reason for Line Insertion/Rationale for Provide Access for IV Insertion Medication(s) Provide Access for Emergency Gauge (gauge) 20 IV Catheter Type Peripheral IV Site Observation Patent Site Observation Intervention Inspected Line Dressing Applied Transparent Dressing Dry/Intact Line Care Saline Flush P-Locked Labs drawn from Line* No Initial Patient Assessment Start: 05/30/16 19: 49 Freq: .ONCE Status: Active Document 05/30/16 19:58 EMQ (Rec: 05/30/16 20:10 EMQ [id number]) General Questions Date of Arrival on Unit 05/30/16 Time of Arrival on Unit 19:45 Admitted From Emergency Dept Chief Complaint SOB Onset of Chief Complaint 05/25/16 History Provided By Patient Orientation To Call Light Bed Phone TV Bathroom Smoking Policy Visiting Hours Procedures ID Bracelet On Emergency Contact Name Sri Schulte Relationship to Patient daughter in law Emergency Contact Phone Number [phone] Bands applied ID band Patient Health Portal Patient was provided information on Yes accessing patient portal Patient Requests Portal Enrollment No Reason No Portal Enrollment Patient Already Enrolled Malnutrition Screening Tool (MST) Have You Recently Lost Weight Without No Trying Advance Directives Advance Directives No Advance Directives Information Provided No Reason Not Provided Patient declined Patient Rights Copy of Rights Given and Verbalizes Yes Understanding Tobacco Free [place]: Copy of S Yes Statement Given and Patient Verbalizes Understanding Communication Ability Primary Language Par[place] Preferred Language [place] Administrative Support Assoc Required No Ability to Follow Directions Excellent Able to Read Yes Able to Write Yes Learning Preferences One-on-One Instruction Group Instruction Audio Visual Written Demonstration Discussion Hearing Ability Normal Visual Assistive Devices Glasses Pain Assessment Do You Have Any Ongoing (Chronic) Pain Yes: hips and back Problems Educated on Pain Scale Yes Past Medical History Medical history asthma CHF COPD diabetes GERD hypertension kidney stones thyroid disease syncope Female Surgical History hysterectomy other Additional surgical history pyloric stenosis surgery, tonsils removed, kidney stone removed (urinary stent), 2 heart caths, 2 EETS Psychiatric history anxiety depression Smoking Status Never smoker Smokeless Tobacco Status No Alcohol use none Drug use none Occupational status retired Current living situation Home With Family Activity level Uses cane/walker Recent Out of Country Travel Within the No Last 8 Weeks Exposure or Possible Exposure to Illness No During Travel Family History-Meaningful Use Father Living Status Hx Family Cardiac Disorders Yes: CHF Hx Family Respiratory Disorders No Hx Family Cancer No Hx Family GI Disorders No Hx Family Endocrine Disorder No Hx Family Neuromuscular Disorders No Hx Family Neurologic Disorders Yes: parkinsons Hx Family HEENT Disorders No Hx Family Autoimmune Disorders No Mother Living Status Hx Family Cardiac Disorders Yes Hx Family Respiratory Disorders Yes Hx Family Cancer Yes: breast Hx Family GI Disorders No Hx Family Genitourinary Disorders No Hx Family Endocrine Disorder No Hx Family Musculoskeletal Disorders No Hx Family Neuromuscular Disorders Yes: TIA Hx Family Neurologic Disorders No Hx Family HEENT Disorders No Hx Family Autoimmune Disorders No Hx Family Reproductive Disorders No Hx Family Psychosocial Disorders No Hx Family Medical Disorders No Spiritual Needs Spiritual Referral [facility] 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 Psychosocial Over Age 75 and Lives Alone or Over Age No 80 Potential Need for Follow-up Care (ECF, No Home Health, ECT) Developmentally Disabled or History of No Mental Health Problems Diagnosis with Correction Need or No Terminal Implications Responsible for Care of Others No Financial Concerns No Suspected Abuse or Neglect No Suicidal or Homicidal Ideation No Social Service Consult Needed No Functional Assessment Employment Status Retired Eating (Feeding) Ability Independent Bathing Ability Independent Upper Body Dressing Ability Independent Lower Body Dressing Ability Independent Ambulation Ability Independent Toileting Ability Independent Bladder Urge incontinence Bowel Continent Normal Bowel Pattern 1 to 3 Times Weekly Date of Last Known Bowel Movement 05/29/16 Intake and Output, Strict Start: 05/30/16 19: 49 Freq: Q8H Status: Active Document 05/30/16 21:56 TLS (Rec: 05/30/16 21:57 TLS [facility]) Intake and Output Intake, Oral Amount 120 Output, Urine Amount 0 Measure weight Start: 05/30/16 19: 49 Freq: Status: Active Document 05/30/16 20:29 TLS (Rec: 05/30/16 20:32 TLS [facility]) Height and Weight Height 1.68 m Weight 115.802 kg Weight Measurement Method Built in [facility] Body Mass Index (BMI) 41.20 BMI Classification Extreme Obesity Obesity Class III Med Rec Tech Start: 05/30/16 17: 48 Freq: Status: Active Document 05/30/16 17:48 EJD (Rec: 05/30/16 17:49 EJD [id number]) Pharmacy Med Rec Tech Home Medicatons Reconciled? Yes Was this to catch up from previous day No Does patient take 10 or more medications Yes ? Does patient request medication No education Do home meds include Coumadin, Xarelto, No Pradaxa, Eliquis Added Patient Preferred Pharmacy Yes Verified Allergies Yes Would Patient Like to use [facility] No Patient Pharmacy Oxygen administration Start: 05/30/16 19: 49 Freq: Q12H Status: Active Document 05/30/16 19:51 EMQ (Rec: 05/30/16 22:02 EMQ [id number]) Oxygen Heart rate 54 O2 Sat by Pulse Oximetry (95-100) 95 Oxygen Delivery Method Nasal Cannula Oxygen Flow Rate (LPM) 3 Patient Belongings Start: 05/30/16 19: 49 Freq: .ONCE Status: Active Document 05/30/16 19:58 EMQ (Rec: 05/30/16 20:10 EMQ [id number]) Patient Belongings Belongings With Patient on Admission Yes At Bedside Patient Belongings Jewelry Belongings Comment cell phone, wallet, cane, pants, glasses, shirt, shoes Patient Rounding Start: 05/30/16 13: 51 Freq: Q30M Status: Active Document 05/30/16 14:25 ANK (Rec: 05/30/16 14:31 ANK [id number]) Patient Rounding Safety Call Light Within Reach Bed Position Low Bed Brake On Side Rails Up X1 Are the Floors Free From Trip Hazards? Yes Is the Room Free From Clutter? Yes Rounding Completed? Yes Patient Rounding Updated patient/family on Plan of Care Checked for Patient Positioning Checked Patient Pain Level Patient Awake Document 05/30/16 15:43 ANK (Rec: 05/30/16 15:43 NEYMAR [id number]) Patient Rounding Patient Out of Room Document 05/30/16 15:48 ANK (Rec: 05/30/16 15:51 ANK [id number]) Patient Rounding Safety Call Light Within Reach Bed Position Low Side Rails Up X2 Are the Floors Free From Trip Hazards? Yes Is the Room Free From Clutter? Yes Rounding Completed? Yes Patient Rounding Updated patient/family on Plan of Care Checked Patient Pain Level Patient Awake Patient Verbalizes Pain/Symptoms No Improvement Document 05/30/16 17:49 ANK (Rec: 05/30/16 17:50 ANK [id number]) Patient Rounding Safety Call Light Within Reach Bed Position Low Bed Brake On Side Rails Up X2 Are the Floors Free From Trip Hazards? Yes Is the Room Free From Clutter? Yes Rounding Completed? Yes Patient Rounding Updated patient/family on Plan of Care Checked for Patient Positioning Checked Patient Pain Level Patient Awake Patient Verbalizes Pain/Symptoms No Improvement Document 05/30/16 18:09 ANK (Rec: 05/30/16 18:10 NEYMAR [id number]) Patient Rounding Safety Call Light Within Reach Bed Position Low Bed Brake On Side Rails Up X2 Are the Floors Free From Trip Hazards? Yes Is the Room Free From Clutter? Yes Rounding Completed? Yes Patient Rounding Updated patient/family on Plan of Care Checked for Patient Positioning Patient Helped to Bathroom or Assisted with Bedpan or Urinal Checked Patient Pain Level Patient Awake Patient Verbalizes Pain/Symptoms No Improvement Patient Rounding Start: 05/30/16 19: 49 Freq: Q1H Status: Active Document 05/30/16 19:49 EMQ (Rec: 05/30/16 19:50 EMQ [id number]) Hourly Rounding Hourly Rounding Checked for Patient Positioning Patient Personal Items Placed Within Reach Checked Patient Pain Level Hourly Rounding Completed Yes Patient Awake Is family present? No Safety Call Light Within Reach Bed Position Low Fall Precautions Phone Within Reach Bed Brake On Side Rails Up X2 Are the Floors Free From Trip Hazards? Yes Is the Room Free From Clutter? Yes Turn and Postion Bedrest No Turn Q 2HR No Patient Position Sitting up in Bed Document 05/30/16 20:29 TLS (Rec: 05/30/16 20:32 TLS [facility]) Hourly Rounding Hourly Rounding Checked for Patient Positioning Patient Personal Items Placed Within Reach Hourly Rounding Completed Yes Patient Awake Is family present? No Equipment in Use Specialty Bed Safety Call Light Within Reach Bed Position Low Phone Within Reach Side Rails Up X2 Are the Floors Free From Trip Hazards? Yes Is the Room Free From Clutter? Yes Turn and Postion Bedrest No Turn Q 2HR No Patient Position Sitting up in Bed Document 05/30/16 21:56 TLS (Rec: 05/30/16 21:57 TLS [facility]) Hourly Rounding Hourly Rounding Checked for Patient Positioning Patient Personal Items Placed Within Reach Checked Patient Pain Level Hourly Rounding Completed Yes Patient Awake Is family present? No Equipment in Use Specialty Bed Safety Call Light Within Reach Bed Position Low Phone Within Reach Side Rails Up X2 Are the Floors Free From Trip Hazards? Yes Is the Room Free From Clutter? Yes Turn and Postion Bedrest Yes Turn Q 2HR No Patient Position Sitting on Side of Bed Saline lock insertion/management Start: 05/30/16 13: 51 Freq: Status: Active Document 05/30/16 17:40 ANK (Rec: 05/30/16 17:51 ANK [id number]) IV Insertion/Site Assessment IV Attempt 1 Successful Successful Blood drawn and sent to Lab No Left Antecubital IV Established CASINO DEALER No Date of Insertion 05/30/16 Time of Insertion 17:40 Reason for IV Insertion Provide Access for IV Medication(s) Provide Access for Emergency IV Catheter Type Peripheral IV Gauge (gauge) 20 Site Observation Patent Dressing Applied Transparent Dressing Dry/Intact Patient Tolerance Tolerated Well Skin Risk Assessment Scale Start: 05/30/16 19: 49 Freq: Q12H Status: Active Document 05/30/16 19:49 EMQ (Rec: 05/30/16 19:52 EMQ [id number]) Skin Risk Assessment Scale Moisture Risk Occasionally Moist Sensory Perception Slightly Limited Activity Risk Walks Occasionally Mobility Risk Slightly Limited Nutrition Risk Adequate Friction & Shear Risk No Apparent Problem Skin Risk Total Score (points) 18 Supplemental oxygen titration Start: 05/30/16 13: 51 Freq: Status: Active Document 05/30/16 14:32 ANK (Rec: 05/30/16 14:32 ANK [id number]) Oxygen Adminstration Oxygen Saturation (95-100) 90 Oxygen Delivery Method Room Air Document 05/30/16 14:32 ANK (Rec: 05/30/16 14:32 ANK [id number]) Oxygen Adminstration Oxygen Saturation (95-100) 94 Oxygen Delivery Method Nasal Cannula Flow Rate 92 Thrombosis Risk Factor Assessment Start: 05/30/16 19: 49 Freq: .ONCE Status: Active Document 05/30/16 19:58 EMQ (Rec: 05/30/16 20:10 EMQ [id number]) Thrombosis Risk Factor Assessment Each Factor Represents 1 point Abnormal pulmonary function ( COPD) Each Risk Factor Represents 2 Points Age 60 - 74 years Total Risk Factor Score 3 Risk Level Higher Risk Triage Start: 05/30/16 13: 47 Freq: Status: Active Document 05/30/16 13:48 [id number] (Rec: 05/30/16 13:51 [id number]) Triage Chief Complaint triage ED Shortness of Breath/Dyspnea Patient Stated Complaint SOB TANIA 2 Onset (ago) day(s) Description of Symptoms Pt c/o ELVIE for five days that worsened yesterday. Pt warm and dry. Respirations are labored. General Appearance alert Work Related Injury? No Mode of arrival wheelchair Source patient Limitations no limitations Temperature (97.6 F-99.6 F) 97.8 F Temperature Source Oral Pulse Rate 60 Respiratory Rate 24 Blood Pressure 200/76 O2 Sat by Pulse Oximetry (95-100) 92 Oxygen Delivery Room Air Height 1.68 m Weight 115.666 kg Weight Measurement Method Stated by Patient Pain Scale 0 Pain Scale Used Standard (1-10) Medical history asthma CHF COPD diabetes GERD hypertension kidney stones thyroid disease syncope Female surgical history hysterectomy Tonsillectomy Psychiatric history anxiety depression Smoking Status Never smoker Smokeless Tobacco Status No Alcohol Use none Drug Use none Patient resides with/at Children Other Relative Safety Concerns Feels Safe At This Time Do you currently feel hopless, have No thoughts of self harm, or thoughts of harming others History of fall in last 14 days? No Hx Now No Influenza vaccine up to date Yes Pneumonia vaccine up to date Yes Tetanus UTD no Father Family Member Living Status Hx Family Cardiac Disorders Yes: CHF Hx Family Respiratory Disorders No Hx Family Cancer No Hx Family GI Disease No Hx Family Endocrine Disorder No Hx Family Neuromuscular Dysfunction No Hx Family Neurologic Problems Yes: parkinsons Hx Family HEENT Problems No Hx Family Autoimmune Disease Problems No Mother Family Member Living Status Hx Family Cardiac Disorders Yes Hx Family Respiratory Disorders Yes Hx Family Cancer Yes: breast Hx Family GI Disease No Hx Family Endocrine Disorder No Hx Family Neuromuscular Dysfunction No Hx Family Neurologic Problems No Hx Family HEENT Problems No Hx Family Autoimmune Disease Problems No Vital Signs Assessment Start: 05/30/16 13: 51 Freq: Status: Active Document 05/30/16 15:48 ANK (Rec: 05/30/16 15:51 ANK [id number]) ED Vital Signs Pain Reported No Pain Reported Blood Pressure 166/51 Blood Pressure Location Left Arm Source Automatic Cuff Position Sitting Pulse Rate 52 Rhythm Regular Strength Normal Method Palpation Respiratory Rate 16 Depth Normal Effort Normal for Patient Pattern Regular Pulse Oximetry (95-100) 95 Oxygen Delivery Nasal Cannula Oxygen Flow Rate (LPM) 3 Document 05/30/16 17:49 ANK (Rec: 05/30/16 17:50 ANK [id number]) ED Vital Signs Pain Reported No Pain Reported Blood Pressure 157/69 Pulse Rate 52 Respiratory Rate 20 Effort Labored Pulse Oximetry (95-100) 94 Oxygen Delivery Nasal Cannula Oxygen Flow Rate (LPM) 3 Document 05/30/16 18:09 ANK (Rec: 05/30/16 18:10 ANK [id number]) ED Vital Signs Pain Reported No Pain Reported Blood Pressure 168/62 Pulse Rate 62 Respiratory Rate 16 Depth Normal Effort Normal for Patient Pulse Oximetry (95-100) 95 Oxygen Delivery Nasal Cannula Oxygen Flow Rate (LPM) 3 Vital Signs Assessment Start: 05/30/16 19: 49 Freq: Q4H Status: Active Document 05/30/16 20:29 TLS (Rec: 05/30/16 20:32 TLS [id number]) Vital Signs with MEWS Temperature (97.6 F-99.6 F) 97.7 F Temperature Source Oral Pulse Rate 57 Respiratory Rate 20 Pulse Oximetry (95-100) 93 Oxygen Delivery Nasal Cannula Oxygen Flow Rate (LPM) 3 Blood Pressure 141/49 Blood Pressure Location Left Radial Artery Source Automatic Cuff Position HOB Elevated Neuro Status *recalled from last Alert documentation MEWS Score 1 Discharge Information ED Provider: Branden Myrick Status: Departed Time Seen by Provider: 05/30/16 14:30 Condition: Fair Triaged At: 05/30/16 13:48 Emergency Discharge Date/Time: 05/30/16 19:31 Emergency Discharge Disposition: Admitted As Inpatient Clinical Impression Acute exacerbation of CHF (congestive heart failure) Emergency Discharge Comment: Admit Intervention Last Done ED Shortness of Breath Assessment 05/30/16 14:25 Query Result Sepsis Infection Criteria Present none Sepsis SIRS Criteria none Sepsis Screen No Definite Risk Shortness Of Breath Symptoms/Complaint Shortness of Breath Shortness Of Breath Onset 5 days Shortness Of Breath Duration Constant Shortness Of Breath Severity Moderate Shortness Of Breath Context History/simular sympoms Shortness Of Breath Known History COPD Asthma Diabetes Shortness Of Breath Improves With Upright Position Shortness Of Breath Worsens With Lying Flat Exertion Movement Shortness Of Breath Associated Symptoms Pain With Inspiration Cough Wheezing Sputum Production Lower Extremity Pain Shortness Of Breath Treatments Prior to None Arrival Chest Pain Intensity 0 Respiratory Depth Shallow Respiratory Effort Short of Breath Anterior & Posterior Bilateral Throughout -Breath Sounds Diminished Expiratory Wheezing Cough Description Voluntary Productive Cough Frequency Intermittent Bilateral Lower Extremity -Edema Type None Level Of Consciousness Awake Alert Appropriate Patient Orientation Person Place Time Patient Behavior Appropriate Ability to Follow Directions Excellent Impaired Cognition No Skin Temperature Warm Skin Moisture Dry Skin Turgor Elastic Capillary Refill < 3 Seconds ED Discharge Assessment 05/30/16 19:25 Query Result ED Discharge Disposition Admitted ED Condition on Discharge Good Med Rec/Patient Phamracy completed? Yes ED Mode of Discharge Stretcher ED Admit to 2A Bed assigned 37 Transported by automotive exhaust emissions technician Transported with monitor Report given to Nurse Care transferred to [place] Information relayed patient's care treatments medications given condition recent/anticipated change Clinical Documentation Summary Provided Yes Severity scale (1-10) 0 Pain Scale Used Standard (1-10) Blood Pressure 154/64 Heart rate 66 Respiratory Rate 18 Oxygen Delivery Nasal Cannula Pulse Oximetry Reading 95 Critical Care Minutes 0 Observation Discharge Date/Time: Observation Discharge Disposition: Observation Discharge Comment: Instructions: Stand-Alone Forms: Prescriptions: Visit Report - Forms: - Referrals: Radiology Results Chest X-Ray 05/30/16 14:06
[2016-05-30] MEDS: Pregabalin 50 MG CAPSULE PO SCH (22:07)
[2016-05-30] MEDS: Famotidine 20 MG TABLET PO SCH (22:07)
[2016-05-30] MEDS: Doxycycline 100 MG CAPSULE PO SCH (22:07)
[2016-05-30 22:09] LABS: VBG HCO3 29.2 mEq/L (21-27); VBG PH 7.41 pH Units (7.32-7.42)
[2016-05-30] MEDS: Insulin LISPRO 300 UNITS/3 ML VIAL SQ SCH (22:16)
[2016-05-30 22:49] LABS: Bilirubin,Urine Negative (Negative); Blood,Urine Negative (Negative); Clarity,Urine Clear (Clear); Color,Urine Yellow (Yellow); Glucose,Urine (UA) Normal (Normal); Ketones,Urine Negative (Negative); Leukocyte Esterase,Urine Negative (Negative); Nitrite,Urine Negative (Negative); Protein,Urine Negative (Neg-Trace); Specific Gravity,Urine 1.014 (1.010-1.025); Urobilinogen,Urine Normal (Normal)
[2016-05-30] MEDS: Ipratropium/Albuterol Neb 3 ML IH SCH (22:55)
[2016-05-31] MEDS: Acetaminophen 325 MG TABLET PO PRN (00:06)
[2016-05-31 00:11] LABS: Adenovirus Not Detected (Not Detect); Bordetella Pertussis Not Detected (Not Detect); Chlamydophila pneumoniae Not Detected (Not Detect); Coronavirus 229E Not Detected (Not Detect); Coronavirus HKU1 Not Detected (Not Detect); Coronavirus NL63 Not Detected (Not Detect); Coronavirus OC43 Not Detected (Not Detect); Human Metapneumovirus Not Detected (Not Detect); Human Rhinovirus/Enterovirus Not Detected (Not Detect); Influenza A Subtype 2009 H1 Not Detected (Not Detect); Influenza A Untypeable Not Detected (Not Detect); Influenza B Not Detected (Not Detect); Mycoplasma pneumoniae Not Detected (Not Detect); Parainfluenza Virus 1 Not Detected (Not Detect); Parainfluenza Virus 2 Not Detected (Not Detect); Parainfluenza Virus 3 Not Detected (Not Detect); Parainfluenza Virus 4 Not Detected (Not Detect); Respiratory Syncytial Virus Not Detected (Not Detect)
[2016-05-31 00:54] LABS: Hemoglobin A1C 8.7 %
[2016-05-31] MEDS: Ipratropium/Albuterol Neb 3 ML IH SCH ×4 (04:35→22:15)
[2016-05-31 06:52] LABS: Basophils # 0.1 K/mcL (0.0-0.2); Basophils % 0.4 %; Eosinophils % 0.1 %; Hematocrit 36.3 % (35.3-44.9); Hemoglobin 11.8 g/dL (11.5-15.4); INR 1.2; Immature Granulocytes % 1.2 % (0-4); Immature Platelets 4.5 % (1.1-6.1); Lymphocytes # 0.4 K/mcL (0.6-4.6); Lymphocytes % 3.9 %; Mean Corpuscular HGB Conc 32.5 g/dL (31.6-35.5); Mean Corpuscular Hemoglobin 28.6 pg (28.0-33.3); Mean Corpuscular Volume 87.9 fL (83.0-100.0); Mean Platelet Volume 11.2 fL (9.4-12.4); Monocytes # 0.1 K/mcL (0.0-1.3); Monocytes % 0.7 %; Neutrophils # 10.6 K/mcL (1.6-8.9); Platelet Count 222 K/mcL (140-400); Prothrombin Time 13.2 Seconds (9.4-12.1); Red Blood Count 4.13 M/mcL (3.82-4.97); Red Cell Distribution Width 15.9 % (11.5-14.5); Segmented Neutrophils % 93.7 %
[2016-05-31 06:55] LABS: Activated Partial Thrombo Time 34.7 Seconds (26.0-36.0)
[2016-05-31 07:05] LABS: Albumin 3.2 g/dL (3.5-5.0); Albumin/Globulin Ratio 0.9 (1.1-2.2); Bilirubin,Total 0.8 mg/dL (0.2-1.2); Calcium 8.8 mg/dL (8.6-10.8); Chol/HDL Ratio 4.2 (0-4.9); Globulin 3.7 g/dL (2.4-3.5); Magnesium 1.3 mg/dL (1.6-2.6); Potassium 4.1 mEq/L (3.5-4.5); Total Protein 6.9 g/dL (6.0-8.3)
[2016-05-31 07:28] LABS: Thyroid Stimulating Hormone 0.49 mcIU/mL (0.350-4.840)
[2016-05-31] MEDS: predniSONE 20 MG TABLET PO SCH (08:29)
[2016-05-31] MEDS: Famotidine 20 MG TABLET PO SCH (08:29)
[2016-05-31] MEDS: BuPROPion SR (12 HR) 150 MG TABLET PO SCH ×2 (08:30→21:13)
[2016-05-31] MEDS: Lisinopril 20 MG TABLET PO SCH ×2 (08:30→21:13)
[2016-05-31] MEDS: Aspirin Enteric Coated 81 MG Tablet PO SCH (08:31)
[2016-05-31] MEDS: Pregabalin 50 MG CAPSULE PO SCH ×2 (08:31→21:13)
[2016-05-31] MEDS: Doxycycline 100 MG CAPSULE PO SCH ×2 (08:32→21:13)
[2016-05-31] MEDS: Bumetanide 1 MG/4 ML VIAL IVP SCH ×2 (08:35→18:04)
[2016-05-31] MEDS: Insulin LISPRO 300 UNITS/3 ML VIAL SQ SCH ×4 (08:40→21:13)
[2016-05-31] MEDS ORDERED: Benzonatate 100 MG CAPSULE PO PRN (08:41)
[2016-05-31] MEDS ORDERED: Magnesium Sulfate 2 GM in D5% in Water 100 ML IVPB ONE (08:41)
[2016-05-31] MEDS: *HR* Heparin 5,000 UNIT/ML VIAL SQ SCH ×3 (09:55→21:13)
[2016-05-31] MEDS: Insulin NPH 100 UNIT/ML (x5UNIT) SQ SCH ×2 (09:57→18:39)
--- NOTE | 2016-05-31 12:49 | Electrocardiograph Report ---
[address] [place] [address] Test Date: 2016-05-30 Pat Name: Gaby Armas Department: 103 Room: 2A Gender: F Ophthalmic Technician Apprentice: : 1950 Requested By: Branden Myrick Order Number: [id number] Reading MD: Perfecto Henry MD Measurements Intervals [place] Rate: 54 P: 3 AK: 136 QRS: 42 QRSD: 93 T: 108 QT: 437 QTc: 423 Interpretive Statements SINUS BRADYCARDIA Electronically Signed On 05-31-2016 12:47:40 EDT by Perfecto Henry MD
--- NOTE | 2016-05-31 13:44 | Internal Med Progress Note ---
Date of Encounter: 05/31/16 Time of Encounter: 09:00 - Subjective Interval history: Ms. Armas has been seen and evaluated this morning. She says she has suffered with periodic breathing trouble over the past 18months more so since moving to [place]. She has had associated SOB, cough-productive (clear) and dyspnea on exertion. 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 She says that may be affecting her volume output. She is concerned for the number of scans she has had and what they maybe for. She does use BiPAP at home and is open to using BiPAP during inpatient stay. - Constitutional Vitals: Temp Pulse Resp BP Pulse Ox 97.6 F 59 16 113/69 100 05/31/16 12:07 05/31/16 12:07 05/31/16 12:07 05/31/16 12:07 05/31/16 12:07 General appearance: Present: cooperative, mild distress, A&O X 3, morbidly obese , answers questions appropriately Internal Medicine: Result - Labs CBC & Chem 7: 05/31/16 06:34 05/31/16 06:34 Labs: Short CBC 05/31/16 Range/Units 06:34 WBC 11.3 H (4.3-11.1) K/mcL Hgb 11.8 (11.5-15.4) g/dL Hct 36.3 (35.3-44.9) % Plt Count 222 (140-400) K/mcL Neutrophils # 10.6 H (1.6-8.9) K/mcL BMP 05/31/16 06:34 Sodium 136 Potassium 4.1 Chloride 102 Carbon Dioxide 21 BUN 24 H Creatinine 1.34 H Glucose 336 H Calcium 8.8 Cardiac Enzymes 05/30/16 05/31/16 05/31/16 Range/Units 21:59 06:34 12:33 Troponin I 0.01 0.01 0.01 (0-0.03) ng/mL Liver Function 05/31/16 Range/Units 06:34 Total Bilirubin 0.8 (0.2-1.2) mg/dL AST 28 (5-34) Units/L ALT 39 (0-55) Units/L Alkaline Phosphatase 64 (38-126) Units/L Albumin 3.2 L (3.5-5.0) g/dL Urine 05/30/16 Range/Units 22:35 Urine Color Yellow (Yellow) Urine Clarity Clear (Clear) Urine pH 6.0 (5.0-8.0) pH Units Ur Specific [place] 1.014 (1.010-1.025) Urine Protein Negative (Neg-Trace) mg/dL Urine Glucose (UA) Normal (Normal) mg/dL - ABG Interpretation ABG results: PT/INR, D-dimer PT 13.2 Seconds (9.4-12.1) H 05/31/16 06:34 - Impressions Impressions Chest CTA 05/30/16 21:02 IMPRESSION: 1. No findings of pulmonary embolism. 2. Minimal interstitial pulmonary edema, small right and trace left pleural effusions, mild cardiomegaly, suggesting congestive heart failure. 3. Moderately dilated pulmonary arteries, a finding that can be seen with pulmonary hypertension. 4. Moderate right ventricular hypertrophy and mild concentric left ventricular hypertrophy. 5. Prominent reflux of the contrast bolus as well as flattening of the interventricular septum, suggesting right heart dysfunction. 6. Solid nodules measuring up to 1.9 cm x 0.9 cm in the right upper and bilateral lower lobes. Of note, one measuring 1.4 cm x 1.1 cm in the right lower lobe has spiculated appearing margins. Recommend follow-up per the Fleischner Society criteria for solid nodules as below. RECOMMENDATIONS: Fleischner Society guidelines for follow-up and management of incidentally detected pulmonary nodules: Multiple Solid Nodules: Nodule size greater than 8 mm In a high-risk patient, CT at 3-6 months, then CT at 18-24 months. Radiology 2017 http://pubs.rsna.org/doi/full/10.1148/radiol.[email or web address] D/ / Branden Hernandez MD / Branden Hernandez MD Interpreting Provider: Branden Hernandez MD Chest CT 05/31/16 11:00 IMPRESSION: 1. Stable mild-moderate right and mild left pleural effusions with associated atelectasis. 2. Stable multifocal irregular right lung pulmonary opacities and lung base patchy consolidation. An acute infectious process cannot be excluded. The left lower lobe lateral 8 mm nodule is stable compared to a CT abdomen/pelvis 03/22/2015 demonstrating 1 year of stability. The right lung base patchy opacities are new since the 2016 CT abdomen/pelvis. Following resolution of the acute respiratory compromise a follow-up CT thorax without contrast in 1-2 months is recommended to re-evaluate the right long for persistent nodules. If there are persistent findings then recommendations will be given at this time. 3. Stable mild mediastinal lymphadenopathy. This could be re-evaluated on the follow-up CT thorax exam. 4. Indeterminate patchy sclerosis and subtle periosteal changes along the mid to distal sternal body at the left paramedian aspect. This could relate to stress fracture or prior injury. Given the irregular pulmonary nodules a mixed nonexpansile metastatic lesion cannot be excluded. A whole-body bone scan could be performed looking for multifocal areas of increased activity as well as focal activity associated with the sternal area of interest. D/ / 05/31/2016 12:03:58 Angelo Temple MD / prashanth Interpreting Provider: Angelo Temple MD Consult Discharge Plan - Plan Referrals: Deny Thomas MD [Primary Care Provider] - (WEB REQUEST SENT ON 05/31/16)
--- NOTE | 2016-05-31 14:37 | ECHO - Doppler Report ---
Limited Echocardiogram Name: Gaby Armas Date of Study: 05/31/2016 Date: 1950 Ht: 66.0 in Medical Record#: [id number] Age: 65 Wt: 255.0 lb Gender: Female BSA: 2.22 Order #: [id number] Location: [facility] Room #: 2A37 Reading Physician: Margie Kim DO Precision Thread Grinder Operator: Gustavo Montano Ordering Physician: Melo Solorio DO Primary Physician: Deny Thomas M.D. Indications: Hypoxia, Congestive heart failure Impressions: LVEF 65-70%. Normal left ventricular size and systolic function. Normal right ventricular size and function. Left Ventricular Wall Motion: Rest Echo Findings All wall segments showed normal motion. Findings: Study Quality * Technically sub-optimal due to body habitus. ECG Findings * Normal sinus rhythm. Left Ventricle * LVEF 65-70%. Right Ventricle * Normal right ventricular structure and function. History Hypertension Diabetes Family History of CAD Congestive Heart Failure 01/2016 a Previous Echo was performed. Measurements: BP: 116/ 64 2D Normal Values LVIDd: 4.60 cm 3.7 - 5.6 cm LVIDs: 3.20 cm 1.5 - 3.6 cm %FS: 30.40 cm >25 % LA volume: Updated by Margie Kim on 05/31/2016 2:30:58 PM electronically signed on 05/31/2016 2:31:17 PM with status of Final Wall Motion Shaffer: 1=Normal, 2=Hypokinesis, 3=Akinesis, 4=Dyskinesis, 5=Aneurysmal, 6=Hyperkinetic, X=Not Visualized (Blank)=Missing
--- NOTE | 2016-05-31 14:39 | Internal Med Progress Note ---
<Deshawn Tamayo - Last Filed: 05/31/16 15:10> Date of Encounter: 05/31/16 Time of Encounter: 14:34 - Assessment and plan (1) Acute exacerbation of chronic obstructive pulmonary disease (COPD) Current Visit: Yes Status: Acute Assessment and plan: Patient admitted with COPD exacerbation requiring 3 L nasal Oxygen to Maintain Oxygen Saturation Greater Than 90%, she was tachypneic with increased sputum production. Patient's shortness of breath was progressive. Unsure if this is more cardiac related with CHF exacerbation versus COPD exacerbation. Plan: - Continue antibiotic therapy with doxycycline 100 mg twice a day - Continue breathing treatments with DuoNeb's, Proventil nebulizer - Prednisone 40 mg by mouth daily, for total 5 days. - Pulmonology has been consulted and case discussed. (2) Nodule of left lung Current Visit: No Status: Acute Assessment and plan: Salt nodules measuring up to 1.9 cm x 0.9 cm in the right upper and bilateral lower lobes. Of note one measuring 1.4 cm x 1.1 cm in the right lower lobe has speculated appearing margins. These findings were discussed with pulmonology requesting consult to evaluate the patient. Plan: - Patient will need outpatient follow-up and likely repeat chest CT scan in 3-6 months then 18-24 months. (3) Diastolic CHF with preserved left ventricular function, NYHA class 2 Current Visit: Yes Status: Acute Assessment and plan: Mrs. Armas 65 year old female admitted with increasing shortness of breath. History of transesophageal echocardiogram January 2016 demonstrating a left ventricular function of 65-70%, subaortic membrane present with turbulent flow in the LV OT. Gradients were not assessed on this study. Normal right ventricular size and systolic function. Moderate dilated left atrium. Trileaflet aortic valve and mitral thickened leaflets. Mild/moderate aortic stenosis. Aortic valve area 1.52 cm. Moderate aortic regurgitation. Mild to moderate mitral regurgitation. No evidence of intra-atrial shunting noted with saline contrast. - CT of the chest demonstrates bilateral pleural effusions. Patient examination demonstrates mild fluid overload. Plan: - Continue gentle diuresis. - Cardiac diet - Fluid restrictions - Daily weights (4) Morbid obesity with BMI of 40.0-44.9, adult Current Visit: Yes Status: Chronic Assessment and plan: Patient has a BMI of 41.2 with associated diabetes, obstructive sleep apnea. Weight loss and diet modifications will be highly beneficial in promoting longevity and reducing risk factors for further comorbid disease. (5) NIKOS (obstructive sleep apnea) Current Visit: Yes Status: Chronic Assessment and plan: Patient is morbidly obese with BMI 41.2 and history of obstructive sleep apnea. She wears a BiPAP while sleeping at night, plan to continue BiPAP use while sleeping and at rest during inpatient stay. Plan: -Consult made to respiratory therapy. (6) Diabetes Current Visit: Yes Status: Acute Assessment and plan: Patient is diabetic type II, home antihyperglycemic coverage includes metformin 500 mg by mouth twice a day, Novolin and 40 units subcutaneous twice a day. Plan: - Continue inpatient sliding scale high dose. - Continue ACHS glucose checks. Qualifiers: Qualified Code(s): E11.9 - Type 2 diabetes mellitus without complications; Z79.4 - nursing home (current) use of insulin (7) Hypothyroidism Current Visit: Yes Status: Acute Assessment and plan: Continue levothyroxin 75mcg by mouth in am. Qualifiers: Qualified Code(s): E03.9 - Hypothyroidism, unspecified (8) HTN (hypertension) Current Visit: Yes Status: Acute Assessment and plan: Continue Lopressor 25 mg by mouth twice a day, lisinopril 20 mg by mouth twice a day. Continue to hold patient's home hydrochlorothiazide 25 mg by mouth daily. Continue monitoring blood pressure. Qualifiers: Qualified Code(s): I10 - Essential (primary) hypertension (9) DVT prophylaxis Current Visit: Yes Status: Acute Assessment and plan: Subcutaneous heparin 5000 units every 8 hours - Subjective Interval history: Ms. Armas has been seen and evaluated this morning. She says she has suffered with periodic breathing trouble over the past 18months more so since moving to [place]. She has had associated SOB, cough-productive (clear) and dyspnea on exertion. She says she has been seeing a meat manager who says she has membrane over her aortic valve that is affecting her cardiac output. She says that may be affecting her volume output. She is concerned for the number of scans she has had and what they maybe for. She does use BiPAP at home and is open to using BiPAP during inpatient stay. - Constitutional Vitals: Temp Pulse Resp BP Pulse Ox 97.6 F 59 16 113/69 100 05/31/16 12:07 05/31/16 12:07 05/31/16 12:07 05/31/16 12:07 05/31/16 12:07 General appearance: Present: cooperative, mild distress, A&O X 3, morbidly obese , answers questions appropriately - Head Head exam: Present: atraumatic, normocephalic - Eye Eye exam: Present: PERRL, conjuntiva pink, sclera anicteric Pupils: Present: PERRL - ENT ENT exam: Present: mucous membranes moist - Neck Neck exam general surgery: Present: supple, trachea midline. Absent: lymphadenopathy - Respiratory Respiratory exam: Present: rhonchi, wheezes - Cardiovascular Cardiovascular exam: Present: RRR, +S1, +S2. Absent: diastolic murmur, gallop, rubs, systolic murmur - GI/Abdominal GI/Abdominal exam: Present: normal bowel sounds, soft, no peritoneal signs. Absent: distended, tenderness - Extremities Exam Extremities exam: Present: pedal edema, warm, radial pulses palpable and symetrical. Absent: calf tenderness, cyanotic - Neurological Exam Neurological exam: Present: alert, oriented X3, no focal deficits. Absent: pronater drift, facial droop, speech deficit - Psychiatric Psychiatric exam: Present: normal affect, normal mood - Skin Skin exam: Present: dry, intact Internal Medicine: Result - Labs CBC & Chem 7: 05/31/16 06:34 05/31/16 06:34 Labs: Short CBC 05/31/16 Range/Units 06:34 WBC 11.3 H (4.3-11.1) K/mcL Hgb 11.8 (11.5-15.4) g/dL Hct 36.3 (35.3-44.9) % Plt Count 222 (140-400) K/mcL Neutrophils # 10.6 H (1.6-8.9) K/mcL BMP 05/31/16 06:34 Sodium 136 Potassium 4.1 Chloride 102 Carbon Dioxide 21 BUN 24 H Creatinine 1.34 H Glucose 336 H Calcium 8.8 Cardiac Enzymes 05/30/16 05/31/16 05/31/16 Range/Units 21:59 06:34 12:33 Troponin I 0.01 0.01 0.01 (0-0.03) ng/mL Liver Function 05/31/16 Range/Units 06:34 Total Bilirubin 0.8 (0.2-1.2) mg/dL AST 28 (5-34) Units/L ALT 39 (0-55) Units/L Alkaline Phosphatase 64 (38-126) Units/L Albumin 3.2 L (3.5-5.0) g/dL Urine 05/30/16 Range/Units 22:35 Urine Color Yellow (Yellow) Urine Clarity Clear (Clear) Urine pH 6.0 (5.0-8.0) pH Units Ur Specific [place] 1.014 (1.010-1.025) Urine Protein Negative (Neg-Trace) mg/dL Urine Glucose (UA) Normal (Normal) mg/dL - ABG Interpretation ABG results: PT/INR, D-dimer PT 13.2 Seconds (9.4-12.1) H 05/31/16 06:34 - Impressions Impressions Chest CTA 05/30/16 21:02 IMPRESSION: 1. No findings of pulmonary embolism. 2. Minimal interstitial pulmonary edema, small right and trace left pleural effusions, mild cardiomegaly, suggesting congestive heart failure. 3. Moderately dilated pulmonary arteries, a finding that can be seen with pulmonary hypertension. 4. Moderate right ventricular hypertrophy and mild concentric left ventricular hypertrophy. 5. Prominent reflux of the contrast bolus as well as flattening of the interventricular septum, suggesting right heart dysfunction. 6. Solid nodules measuring up to 1.9 cm x 0.9 cm in the right upper and bilateral lower lobes. Of note, one measuring 1.4 cm x 1.1 cm in the right lower lobe has spiculated appearing margins. Recommend follow-up per the Fleischner Society criteria for solid nodules as below. RECOMMENDATIONS: Fleischner Society guidelines for follow-up and management of incidentally detected pulmonary nodules: Multiple Solid Nodules: Nodule size greater than 8 mm In a high-risk patient, CT at 3-6 months, then CT at 18-24 months. Radiology 2017 http://pubs.rsna.org/doi/full/[email or web address] D/ / Branden Hernandez MD / Branden Hernandez MD Interpreting Provider: Branden Hernandez MD Chest CT 05/31/16 11:00 IMPRESSION: 1. Stable mild-moderate right and mild left pleural effusions with associated atelectasis. 2. Stable multifocal irregular right lung pulmonary opacities and lung base patchy consolidation. An acute infectious process cannot be excluded. The left lower lobe lateral 8 mm nodule is stable compared to a CT abdomen/pelvis 03/22/2015 demonstrating 1 year of stability. The right lung base patchy opacities are new since the 2016 CT abdomen/pelvis. Following resolution of the acute respiratory compromise a follow-up CT thorax without contrast in 1-2 months is recommended to re-evaluate the right long for persistent nodules. If there are persistent findings then recommendations will be given at this time. 3. Stable mild mediastinal lymphadenopathy. This could be re-evaluated on the follow-up CT thorax exam. 4. Indeterminate patchy sclerosis and subtle periosteal changes along the mid to distal sternal body at the left paramedian aspect. This could relate to stress fracture or prior injury. Given the irregular pulmonary nodules a mixed nonexpansile metastatic lesion cannot be excluded. A whole-body bone scan could be performed looking for multifocal areas of increased activity as well as focal activity associated with the sternal area of interest. D/ / 05/31/2016 12:03:58 Angelo Temple MD / prashanth Interpreting Provider: Angelo Temple MD Consult Discharge Plan - Plan Referrals: Deny Thomas MD [Primary Care Provider] - 06/06/16 3:15 pm () <Melo Solorio - Last Filed: 05/31/16 18:55> - Assessment and plan (1) Acute and chronic respiratory failure with hypoxia Current Visit: Yes Status: Acute Assessment and plan: Supplementation with oxygen. Will need eval for home oxygen. (2) Acute exacerbation of CHF (congestive heart failure) Current Visit: Yes Status: Acute Assessment and plan: Diuresing. 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 insulin use: with rat exterminator use Qualified Code(s): E11.65 - Type 2 diabetes mellitus with hyperglycemia; Z79.4 - nursing home (current) use of insulin (4) HTN (hypertension) Current Visit: Yes Status: Acute Qualifiers: Qualified Code(s): I10 - Essential (primary) hypertension (5) Hypothyroidism Current Visit: Yes Status: Acute Qualifiers: Qualified Code(s): E03.9 - Hypothyroidism, unspecified (6) NIKOS (obstructive sleep apnea) Current Visit: Yes Status: Chronic (7) Morbid obesity with BMI of 40.0-44.9, adult Current Visit: Yes Status: Chronic (8) Pulmonary nodules Current Visit: Yes Status: Acute (9) Secondary pulmonary hypertension Current Visit: Yes Status: Acute - Constitutional Vitals: Temp Pulse Resp BP Pulse Ox 97.4 F L 76 18 128/64 93 L 05/31/16 16:14 05/31/16 16:14 05/31/16 16:14 05/31/16 16:14 05/31/16 16:14 Internal Medicine: Result - Labs CBC & Chem 7: 05/31/16 06:34 05/31/16 06:34 Labs: Short CBC 05/31/16 Range/Units 06:34 WBC 11.3 H (4.3-11.1) K/mcL Hgb 11.8 (11.5-15.4) g/dL Hct 36.3 (35.3-44.9) % Plt Count 222 (140-400) K/mcL Neutrophils # 10.6 H (1.6-8.9) K/mcL BMP 05/31/16 06:34 Sodium 136 Potassium 4.1 Chloride 102 Carbon Dioxide 21 BUN 24 H Creatinine 1.34 H Glucose 336 H Calcium 8.8 Cardiac Enzymes 05/30/16 05/31/16 05/31/16 Range/Units 21:59 06:34 12:33 Troponin I 0.01 0.01 0.01 (0-0.03) ng/mL Liver Function 05/31/16 Range/Units 06:34 Total Bilirubin 0.8 (0.2-1.2) mg/dL AST 28 (5-34) Units/L ALT 39 (0-55) Units/L Alkaline Phosphatase 64 (38-126) Units/L Albumin 3.2 L (3.5-5.0) g/dL Urine 03/15/17 Range/Units 22:35 Urine Color Yellow (Yellow) Urine Clarity Clear (Clear) Urine pH 6.0 (5.0-8.0) pH Units Ur Specific [place] 1.014 (1.010-1.025) Urine Protein Negative (Neg-Trace) mg/dL Urine Glucose (UA) Normal (Normal) mg/dL - ABG Interpretation ABG results: PT/INR, D-dimer PT 13.2 Seconds (9.4-12.1) H 05/31/16 06:34 - Impressions Impressions Chest CTA 05/30/16 21:02 IMPRESSION: 1. No findings of pulmonary embolism. 2. Minimal interstitial pulmonary edema, small right and trace left pleural effusions, mild cardiomegaly, suggesting congestive heart failure. 3. Moderately dilated pulmonary arteries, a finding that can be seen with pulmonary hypertension. 4. Moderate right ventricular hypertrophy and mild concentric left ventricular hypertrophy. 5. Prominent reflux of the contrast bolus as well as flattening of the interventricular septum, suggesting right heart dysfunction. 6. Solid nodules measuring up to 1.9 cm x 0.9 cm in the right upper and bilateral lower lobes. Of note, one measuring 1.4 cm x 1.1 cm in the right lower lobe has spiculated appearing margins. Recommend follow-up per the Fleischner Society criteria for solid nodules as below. RECOMMENDATIONS: Fleischner Society guidelines for follow-up and management of incidentally detected pulmonary nodules: Multiple Solid Nodules: Nodule size greater than 8 mm In a high-risk patient, CT at 3-6 months, then CT at 18-24 months. Radiology 2017 http://pubs.rsna.org/doi/full/[email or web address] D/ / Branden Hernandez MD / Branden Hernnadez MD Interpreting Provider: Branden Hernandez MD Chest CT 05/31/16 11:00 IMPRESSION: 1. Stable mild-moderate right and mild left pleural effusions with associated atelectasis. 2. Stable multifocal irregular right lung pulmonary opacities and lung base patchy consolidation. An acute infectious process cannot be excluded. The left lower lobe lateral 8 mm nodule is stable compared to a CT abdomen/pelvis 03/22/2015 demonstrating 1 year of stability. The right lung base patchy opacities are new since the 2016 CT abdomen/pelvis. Following resolution of the acute respiratory compromise a follow-up CT thorax without contrast in 1-2 months is recommended to re-evaluate the right long for persistent nodules. If there are persistent findings then recommendations will be given at this time. 3. Stable mild mediastinal lymphadenopathy. This could be re-evaluated on the follow-up CT thorax exam. 4. Indeterminate patchy sclerosis and subtle periosteal changes along the mid to distal sternal body at the left paramedian aspect. This could relate to stress fracture or prior injury. Given the irregular pulmonary nodules a mixed nonexpansile metastatic lesion cannot be excluded. A whole-body bone scan could be performed looking for multifocal areas of increased activity as well as focal activity associated with the sternal area of interest. D/ / 05/31/2016 12:03:58 Angelo Temple MD / prashanth Interpreting Provider: Angelo Temple MD - Attending Attestation I examined this patient and my medical decision-making was reviewed with the Resident Physician on 05/31/16. I agree with the documented findings, disposition and treatment plan as described except to the extent set forth below. Ms. Armas is currently admitted for acute hypoxic resp failure due to acute CHF +/- asthma. She is moderate to high risk due to potential for worsening respiratory symptoms. Ms. Armas is resting comfortably at this time. She is requiring at least 3 liters oxygen. No CP. She is concerned this is a pulmonary problem as well. No GI symptoms. She feels somewhat better than on admit. Exam Alert. Comfortable in bed Heart reg Some wheeze and rhonchi heard I/P 1. Acute hypoxic resp failure - due to acute diastolic CHF 2. Pulmonary hypertension 3. NIKOS Further diagnoses and plan as above.
--- NOTE | 2016-05-31 15:55 | Pulmonology Consult Note ---
Date of Encounter: 05/31/16 Time of Encounter: 15:41 Assessment and Plan (1) Acute and chronic respiratory failure with hypoxia Current Visit: Yes Status: Acute Her respiratory failure is multifactorial in etiology and due in large part to congestive heart failure due to subvalvular aortic stenosis and diastolic dysfunction. Severe deconditioning is also contributing to her exertional dyspnea. I suspect progressive pulmonary hypertension due to her left heart disease, NIKOS, and chronic hypoxia may also be playing a role. It is unclear to me if she truly has underlying pulmonary disease. She carries a diagnosis of COPD, which is a highly questionable diagnosis in a lifelong nonsmoker. She may have asthma (which has never been formally investigated with pulmonary function testing), and she is not on optimal therapy for this. I agree with current management of her respiratory failure with BiPAP while asleep plus oxygen via nasal cannula during daytime hours. I suspect she has fairly significant oxygen desaturations with ambulation. Recommend obtaining ambulatory oxygen saturations prior to discharge, as she will likely qualify for home O2. (2) Asthma Current Visit: Yes Status: Acute By history. Unclear as to what extent this is contributing to her chronic dyspnea. I agree with prednisone 40 mg by mouth daily. I recommend a 5 day course. I discussed with patient optimizing her asthma regimen. I recommend Symbicort 80/4.5 two puffs inhaled twice a day + prn albuterol inhaler/ nebulizer. I recommend outpatient PFTs after she recovers from this acute illness. I have arranged for follow-up in the pulmonary clinic, and she will receive a call from the [facility]. Qualifiers: Asthma severity: unspecified severity Asthma complication type: with acute exacerbation Qualified Code(s): J45.901 - Unspecified asthma with (acute) exacerbation (3) Pulmonary nodules Current Visit: Yes Status: Acute CT scan of the chest upon admission revealed 2 pulmonary nodules on the right, one was 1.9 cm and the other was 1.4 cm. She is a low risk patient being a lifelong nonsmoker. I recommend a repeat CT scan of chest in 3 months. As above, she will establish in the pulmonary office for follow-up. (4) Diastolic CHF with preserved left ventricular function, NYHA class 2 Current Visit: Yes Status: Acute Heart failure due in large part to subvalvular aortic stenosis and diastolic dysfunction. Recommend diuresis to tolerance. Recommended heart rate and blood pressure control as well. Patient may need a more intensive outpatient diuretic regimen, but I will defer this to the primary service and cardiology team. Given her multiple recent hospital admissions related to heart failure and the medical complexity of her heart failure with subvalvular aortic stenosis , she may benefit from establishing with a heart failure clinic as an outpatient. She may also be a candidate for a cardiac rehab program in light of her severe deconditioning. (5) NIKOS (obstructive sleep apnea) Current Visit: Yes Status: Chronic By history. Continue nightly noninvasive ventilation. (6) Secondary pulmonary hypertension Current Visit: Yes Status: Acute Due in large part to left heart disease (subvalvular aortic stenosis and diastolic dysfunction). I suspect she has chronic hypoxia and obstructive sleep apnea contributing as well. No indication for vasodilator therapy. As above, she should be evaluated with ambulatory oxygen saturations as she may qualify for home O2 therapy. No further recommendations from a pulmonary standpoint. Will sign off. Please call with questions. History of Present Illness Consult date: 05/31/16 Requesting physician: Melo Solorio Reason for consult: dyspnea Chief complaint: dyspnea History of present illness: 65-year-old morbidly obese white female with a medical history significant for subaortic valve stenosis, diastolic heart failure, obstructive sleep apnea, pulmonary hypertension, and asthma who presents for evaluation of dyspnea. The patient has had progressive dyspnea for some time with an acute worsening as of late. She reports that she can no longer walk across the room without severe dyspnea on exertion. In fact, she describes conversational dyspnea as well. She noted some worsening lower extremity edema and paroxysmal nocturnal dyspnea 24-48 hours prior to admission. She describes some recent dietary indiscretion as she is on a "popcorn kick" eating lots of buttered popcorn with salt on it as of late. She denies any cough. She has had exposure to paint fumes, which can sometimes trigger her asthma. However, she typically experiences a chest tightness with her asthma, which has not been a predominant symptom during this episode. She does describe some orthopnea, but this is difficult to ascertain given the fact that she always wears her BiPAP mask while sleeping (which typically eliminates her symptoms of orthopnea). No fevers/chills. No sputum production. No wheezing. No sick contacts. Past Med Surg Social Fam HX - Past Medical History Medical history: arthritis, asthma, cardiomyopathy (Congenital HD subaortic membrane.), CHF, COPD (Bipap/Cpap dependent at night. NIKOS.), diabetes, GERD, hyperlipidemia, hypertension, kidney stones, osteoporosis (vit D def.), thyroid disease, syncope, other (DM periph neuropathy; RLS.) Psychiatric history: anxiety, depression - Past Surgical History Surgical History: hysterectomy, other - Social History Smoking Status: Never smoker Smokeless Tobacco Status: No Alcohol use: none Drug use: none - Family History Mother Living Status: Hx Family Cardiac Disorders: Yes Hx Family Respiratory Disorders: Yes Hx Family Cancer: Yes (breast) Hx Family GI Disorders: No Hx Family Genitourinary Disorders: No Hx Family Endocrine Disorder: No Hx Family Musculoskeletal Disorders: No Hx Family Neuromuscular Disorders: Yes (TIA) Hx Family Neurologic Disorders: No Hx Family HEENT Disorders: No Hx Family Autoimmune Disorders: No Hx Family Reproductive Disorders: No Hx Family Psychosocial Disorders: No Hx Family Medical Disorders: No Father Living Status: Hx Family Cardiac Disorders: Yes (CHF) Hx Family Respiratory Disorders: No Hx Family Cancer: No Hx Family GI Disorders: No Hx Family Endocrine Disorder: No Hx Family Neuromuscular Disorders: No Hx Family Neurologic Disorders: Yes (parkinsons) Hx Family HEENT Disorders: No Hx Family Autoimmune Disorders: No Medications and Allergies Albuterol Neb [Proventil Neb] 2.5 mg IH QID PRN 05/30/16 [History] Albuterol Sulfate [Albuterol Inhaler] 2 puff IH Q6H PRN 05/30/16 [History] Aspirin Enteric Coated [Aspirin EC] 81 mg PO DAILY 05/30/16 [History] BuPROPion XL (24 HR) [Wellbutrin XL] 150 mg PO BID 05/30/16 [History] Ergocalciferol (VITAMIN D2) [Vitamin D2] 50,000 unit PO TH 05/30/16 [History] Flaxseed/Omega3,6,9/Fatty Acid [Flax Seed Oil 1,300 mg Softgel] 1 each PO BID [History] Hydrochlorothiazide [Hydrochlorothiazide] 25 mg PO DAILY 05/30/16 [History] Insulin NPH Human Isophane [Novolin N] 40 unit SQ BID 05/30/16 [History] Levothyroxine [Synthroid] 75 mcg PO 0630 05/30/16 [History] Lisinopril [Zestril] 20 mg PO BID 05/30/16 [History] Metformin [Glucophage] 500 mg PO BIDWM 05/30/16 [History] Metoprolol [Lopressor] 25 mg PO BID 05/30/16 [History] Multivit-Min/Folic Acid/Vit K1 [Multi For Her 50 Plus Softgel] 1 each PO DAILY 05/30/16 [History] Paroxetine HCl [Paroxetine HCl] 30 mg PO QAM 05/30/16 [History] Pregabalin [Lyrica] 50 mg PO BID 05/30/16 [History] Vitamin B Complex 1 each PO DAILY 05/30/16 [History] Allergies cephalexin [From Keflex] Allergy (Verified 03/22/15 04:48) Rash ciprofloxacin [From Cipro] Allergy (Verified 03/22/15 04:48) Rash Sulfa (Sulfonamide Antibiotics) Allergy (Verified 03/22/15 04:48) Rash tetanus immune globulin Allergy (Verified 03/22/15 04:48) See Comments swelling of arm codeine Adverse Reaction (Verified 02/14/16 08:12) Hallucinating All Systems: A 10-system review of systems was performed and is negative for pertinent findings except as documented above in the HPI. Physical Examination Vital Signs: Vital Signs, Last 4 Hours Temp Pulse Resp BP Pulse Ox 05/31/16 12:07 97.6 F 59 16 113/69 100 General: Morbidly obese female, no acute distress but does display conversational dyspnea Eyes: nonicteric ENT: oropharynx moist Neck: supple, no lymphadenopathy Lungs: Bibasilar inspiratory crackles, no wheezing Cardiovascular: regular rate and rhythm, harsh systolic ejection murmur noted Gastrointestinal: normoactive bowel sounds, soft, non-tender, non-distended Integumentary: normal Extremities: no cyanosis, LE edema noted Musculoskeletal: no deformities Neuro: normal mental status, non-focal exam Psych: mood appropriate, affect normal Results - Laboratory Findings CBC and BMP: 05/31/16 06:34 05/31/16 06:34 PT/INR, D-dimer PT 13.2 Seconds (9.4-12.1) H 05/31/16 06:34 Abnormal lab findings: Abnormal lab results WBC 11.3 K/mcL (4.3-11.1) H 05/31/16 06:34 RDW 15.9 % (11.5-14.5) H 05/31/16 06:34 Neutrophils # 10.6 K/mcL (1.6-8.9) H 05/31/16 06:34 Lymphocytes # 0.4 K/mcL (0.6-4.6) L 05/31/16 06:34 PT 13.2 Seconds (9.4-12.1) H 05/31/16 06:34 VBG HCO3 29.2 mEq/L (21-27) H 05/30/16 21:59 BUN 24 mg/dL (7-20) H 05/31/16 06:34 Creatinine 1.34 mg/dL (0.57-1.11) H 05/31/16 06:34 Est GFR ( Amer) 48 (> 60) L 05/31/16 06:34 Est GFR (Non-Af Amer) 40 (> 60) L 05/31/16 06:34 Glucose 336 mg/dL (70-99) H 05/31/16 06:34 Hemoglobin A1c 8.7 % (-5.6) H 05/30/16 14:54 Phosphorus 5.0 mg/dL (2.3-4.7) H 05/31/16 06:34 Magnesium 1.3 mg/dL (1.6-2.6) L 05/31/16 06:34 B-Natriuretic Peptide 469 pg/mL (0-100) H 05/30/16 14:54 Albumin 3.2 g/dL (3.5-5.0) L 05/31/16 06:34 Globulin 3.7 g/dL (2.4-3.5) H 05/31/16 06:34 Albumin/Globulin Ratio 0.9 (1.1-2.2) L 05/31/16 06:34 LDL Cholesterol, Calc 136 mg/dL (0-99) H 05/31/16 06:34 - Microbiology Findings Microbiology Findings: Microbiology, Last 48 Hours 05/30/16 22:35 Sputum Culture - Final Sputum - Clinical Findings Intake & Output: Intake & Output 05/30/16 05/31/16 05/31/16 23:59 07:59 15:59 Intake Total 120 / 120 960 / 960 944 / 944 Output Total 200 / 200 0 / 0 Balance -80 / -80 960 / 960 944 / 944 Weight 115.802 kg 115.666 kg Consult Discharge Plan - Plan Referrals: Deny Thomas MD [Primary Care Provider] - 06/06/16 3:15 pm ()
[2016-05-31] MEDS: Budesonide/Formoterol 80/4.5 MDI IH SCH (22:15)
[2016-06-01] MEDS: Ipratropium/Albuterol Neb 3 ML IH SCH ×2 (04:44→10:58)
[2016-06-01] MEDS: Acetaminophen 325 MG TABLET PO PRN (05:16)
[2016-06-01] MEDS: *HR* Heparin 5,000 UNIT/ML VIAL SQ SCH ×3 (05:17→21:10)
[2016-06-01 05:54] LABS: Basophils # 0.1 K/mcL (0.0-0.2); Basophils % 0.3 %; Eosinophils # 0.1 K/mcL (0.0-0.6); Eosinophils % 0.5 %; Hematocrit 36.5 % (35.3-44.9); Hemoglobin 11.7 g/dL (11.5-15.4); Immature Granulocytes % 0.5 % (0-4); Lymphocytes # 1.7 K/mcL (0.6-4.6); Lymphocytes % 11.5 %; Mean Corpuscular HGB Conc 32.1 g/dL (31.6-35.5); Mean Corpuscular Hemoglobin 27.9 pg (28.0-33.3); Mean Corpuscular Volume 87.1 fL (83.0-100.0); Mean Platelet Volume 10.6 fL (9.4-12.4); Monocytes # 0.9 K/mcL (0.0-1.3); Monocytes % 6.1 %; Neutrophils # 12.2 K/mcL (1.6-8.9); Platelet Count 252 K/mcL (140-400); Red Blood Count 4.19 M/mcL (3.82-4.97); Red Cell Distribution Width 16.1 % (11.5-14.5); Segmented Neutrophils % 81.1 %
[2016-06-01 06:10] LABS: Albumin 3.3 g/dL (3.5-5.0); Albumin/Globulin Ratio 0.9 (1.1-2.2); Bilirubin,Total 0.5 mg/dL (0.2-1.2); Globulin 3.8 g/dL (2.4-3.5); Magnesium 1.8 mg/dL (1.6-2.6); Potassium 4.1 mEq/L (3.5-4.5); Total Protein 7.1 g/dL (6.0-8.3)
[2016-06-01] MEDS: Bumetanide 1 MG/4 ML VIAL IVP SCH (08:15)
[2016-06-01] MEDS: BuPROPion SR (12 HR) 150 MG TABLET PO SCH ×2 (08:18→21:10)
[2016-06-01] MEDS: Lisinopril 20 MG TABLET PO SCH ×2 (08:18→21:10)
[2016-06-01] MEDS: Insulin NPH 100 UNIT/ML (x5UNIT) SQ SCH ×2 (08:18→18:33)
[2016-06-01] MEDS: predniSONE 20 MG TABLET PO SCH (08:19)
[2016-06-01] MEDS: Pregabalin 50 MG CAPSULE PO SCH ×2 (08:19→21:10)
[2016-06-01] MEDS: Insulin LISPRO 300 UNITS/3 ML VIAL SQ SCH ×4 (08:19→21:19)
[2016-06-01] MEDS: Aspirin Enteric Coated 81 MG Tablet PO SCH (08:19)
[2016-06-01] MEDS: Doxycycline 100 MG CAPSULE PO SCH ×2 (08:19→21:10)
[2016-06-01] MEDS: Famotidine 20 MG TABLET PO SCH (08:19)
[2016-06-01] MEDS: Budesonide/Formoterol 80/4.5 MDI IH SCH ×2 (10:59→20:34)
--- NOTE | 2016-06-01 15:49 | Internal Med Progress Note ---
<Deshawn Tamayo - Last Filed: 06/01/16 15:47> Date of Encounter: 06/01/16 Time of Encounter: 15:49 - Assessment and plan (1) Acute exacerbation of chronic obstructive pulmonary disease (COPD) Current Visit: Yes Status: Acute Assessment and plan: Patient admitted with COPD exacerbation requiring 3 L nasal Oxygen to Maintain Oxygen Saturation Greater Than 90%, she was tachypneic with increased sputum production. Patient's shortness of breath was progressive. Suspect more cardiac related with CHF exacerbation versus COPD exacerbation. Plan: - Continue antibiotic therapy with doxycycline 100 mg twice a day - Continue breathing treatments with Proventil nebulizer - Prednisone 40 mg by mouth daily, for total 5 days. - Continue Symbicort, discontinue DuoNeb's (2) Nodule of left lung Current Visit: No Status: Acute Assessment and plan: Salt nodules measuring up to 1.9 cm x 0.9 cm in the right upper and bilateral lower lobes. Of note one measuring 1.4 cm x 1.1 cm in the right lower lobe has speculated appearing margins. These findings were discussed with pulmonology requesting consult to evaluate the patient. Plan: - Patient will need outpatient follow-up and likely repeat chest CT scan in 3-6 months then 18-24 months. - This has been discussed with Mrs. Armas. (3) Diastolic CHF with preserved left ventricular function, NYHA class 2 Current Visit: Yes Status: Acute Assessment and plan: Mrs. Armas 65 year old female admitted with increasing shortness of breath. History of transesophageal echocardiogram January 2016 demonstrating a left ventricular function of 65-70%, subaortic membrane present with turbulent flow in the LV OT. Gradients were not assessed on this study. Normal right ventricular size and systolic function. Moderate dilated left atrium. Trileaflet aortic valve and mitral thickened leaflets. Mild/moderate aortic stenosis. Aortic valve area 1.52 cm. Moderate aortic regurgitation. Mild to moderate mitral regurgitation. No evidence of intra-atrial shunting noted with saline contrast. - CT of the chest demonstrates bilateral pleural effusions. Patient examination demonstrates mild fluid overload. 06/01/2016: Patient's respiratory status has improved, echocardiogram demonstrates LVEF 65-70%, normal left ventricular size and systolic function, normal right ventricular size and function. Patient continues to be mildly fluid overloaded on examination, respiratory exam improved. Discussed in depth regarding fluid restrictions and diet control. Plan: - Discontinue Bumex with elevation in creatinine - Cardiac diet - Fluid restrictions - Daily weights (4) Morbid obesity with BMI of 40.0-44.9, adult Current Visit: Yes Status: Chronic Assessment and plan: Patient has a BMI of 41.2 with associated diabetes, obstructive sleep apnea. Weight loss and diet modifications will be highly beneficial in promoting longevity and reducing risk factors for further comorbid disease. (5) NIKOS (obstructive sleep apnea) Current Visit: Yes Status: Chronic Assessment and plan: Patient is morbidly obese with BMI 41.2 and history of obstructive sleep apnea. She wears a BiPAP while sleeping at night, plan to continue BiPAP use while sleeping and at rest during inpatient stay. Plan: -Continue BiPAP while asleep and at rest. - (6) Diabetes Current Visit: Yes Status: Acute Assessment and plan: Patient is diabetic type II, home antihyperglycemic coverage includes metformin 500 mg by mouth twice a day, Novolin and 40 units subcutaneous twice a day. Plan: - Continue inpatient sliding scale high dose. - Continue ACHS glucose checks. 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 Qualifiers: Qualified Code(s): E03.9 - Hypothyroidism, unspecified (8) HTN (hypertension) Current Visit: Yes Status: Acute Assessment and plan: Continue Lopressor 25 mg by mouth twice a day, lisinopril 20 mg by mouth twice a day. Continue to hold patient's home hydrochlorothiazide 25 mg by mouth daily. Continue monitoring blood pressure. Qualifiers: Qualified Code(s): I10 - Essential (primary) hypertension (9) DVT prophylaxis Current Visit: Yes Status: Acute Assessment and plan: Subcutaneous heparin 5000 units every 8 hours - Subjective Interval history: Ms. Armas has been seen and evaluated this morning. She feels her breathing is improved but not completely back to normal and she does not use home oxygen. She continues to require 3 L of oxygen and maintain oxygen saturations greater than 90%. She denies any other concerns at this time. I did discuss her CT findings of lung nodules and recommendations of repeat CT of the chest in 3-6 months. - Constitutional Vitals: Temp Pulse Resp BP Pulse Ox 98.5 F 65 16 123/54 96 06/01/16 10:43 06/01/16 10:43 06/01/16 11:01 06/01/16 10:43 06/01/16 11:01 General appearance: Present: cooperative, mild distress, A&O X 3, morbidly obese , answers questions appropriately - Head Head exam: Present: atraumatic, normocephalic - Eye Eye exam: Present: PERRL, conjuntiva pink, sclera anicteric Pupils: Present: PERRL - ENT ENT exam: Present: mucous membranes moist - Neck Neck exam general surgery: Present: supple, trachea midline - Respiratory Respiratory exam: Present: CTAB. Absent: accessory muscle use, rales, rhonchi, wheezes Additional comments: Diminished breath sounds at lung bases bilateral. - Cardiovascular Cardiovascular exam: Present: RRR, systolic murmur Additional comments: Grade 3/6 systolic ejection murmur - GI/Abdominal GI/Abdominal exam: Present: normal bowel sounds, soft, no peritoneal signs. Absent: distended, tenderness - Extremities Exam Extremities exam: Present: pedal edema (Bilateral trace edema lower Extremities) , warm, radial pulses palpable and symetrical. Absent: calf tenderness, cyanotic - Neurological Exam Neurological exam: Present: CN II-XII intact, oriented X3, no focal deficits. Absent: pronater drift, facial droop, speech deficit - Psychiatric Psychiatric exam: Present: normal affect, normal mood - Skin Skin exam: Present: dry, intact Internal Medicine: Result - Labs CBC & Chem 7: 06/01/16 05:33 06/01/16 05:33 Labs: Short CBC 06/01/16 Range/Units 05:33 WBC 15.0 H (4.3-11.1) K/mcL Hgb 11.7 (11.5-15.4) g/dL Hct 36.5 (35.3-44.9) % Plt Count 252 (140-400) K/mcL Neutrophils # 12.2 H (1.6-8.9) K/mcL BMP 06/01/16 05:33 Sodium 136 Potassium 4.1 Chloride 104 Carbon Dioxide 21 BUN 36 H D Creatinine 1.38 H Glucose 181 H Calcium 9.0 Liver Function 06/01/16 Range/Units 05:33 Total Bilirubin 0.5 (0.2-1.2) mg/dL AST 21 (5-34) Units/L ALT 29 (0-55) Units/L Alkaline Phosphatase 61 (38-126) Units/L Albumin 3.3 L (3.5-5.0) g/dL - ABG Interpretation ABG results: PT/INR, D-dimer PT 13.2 Seconds (9.4-12.1) H 05/31/16 06:34 Consult Discharge Plan - Plan Referrals: Deny Thomas MD [Primary Care Provider] - 06/06/16 3:15 pm () <Melo Solorio - Last Filed: 06/01/16 19:02> - Assessment and plan (1) Acute and chronic respiratory failure with hypoxia Current Visit: Yes Status: Acute Assessment and plan: Continue oxygen supplementation. 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 insulin (4) HTN (hypertension) Current Visit: Yes Status: Acute Qualifiers: Qualified Code(s): I10 - Essential (primary) hypertension (5) Hypothyroidism Current Visit: Yes Status: Acute Qualifiers: Qualified Code(s): E03.9 - Hypothyroidism, unspecified (6) NIKOS (obstructive sleep apnea) Current Visit: Yes Status: Chronic (7) Morbid obesity with BMI of 40.0-44.9, adult Current Visit: Yes Status: Chronic (8) Pulmonary nodules Current Visit: Yes Status: Acute (9) Secondary pulmonary hypertension Current Visit: Yes Status: Acute - Constitutional Vitals: Temp Pulse Resp BP Pulse Ox 98.7 F 77 15 138/52 95 06/01/16 15:44 06/01/16 15:44 06/01/16 15:44 06/01/16 15:44 06/01/16 15:44 Internal Medicine: Result - Labs CBC & Chem 7: 06/01/16 05:33 06/01/16 05:33 Labs: Short CBC 06/01/16 Range/Units 05:33 WBC 15.0 H (4.3-11.1) K/mcL Hgb 11.7 (11.5-15.4) g/dL Hct 36.5 (35.3-44.9) % Plt Count 252 (140-400) K/mcL Neutrophils # 12.2 H (1.6-8.9) K/mcL BMP 06/01/16 05:33 Sodium 136 Potassium 4.1 Chloride 104 Carbon Dioxide 21 BUN 36 H D Creatinine 1.38 H Glucose 181 H Calcium 9.0 Liver Function 06/01/16 Range/Units 05:33 Total Bilirubin 0.5 (0.2-1.2) mg/dL AST 21 (5-34) Units/L ALT 29 (0-55) Units/L Alkaline Phosphatase 61 (38-126) Units/L Albumin 3.3 L (3.5-5.0) g/dL - ABG Interpretation ABG results: PT/INR, D-dimer PT 13.2 Seconds (9.4-12.1) H 05/31/16 06:34 - Attending Attestation I examined this patient and my medical decision-making was reviewed with the Resident Physician on 06/01/16. I agree with the documented findings, disposition and treatment plan as described except to the extent set forth below. Ms. Amras is currently admitted for acute exacerbation of CHF. She remains moderate to high risk due to potential for worsening cardiac and respiratory symptoms. Ms. Armas is doing a little better. She is still coughing and dyspneic. Creatinine has increased so Bumex held. No GI symptoms. No CP. Exam Alert. Comfortable Heart reg with murmur Lungs with some rhonchi I/P 1. Acute exac chronic diastolic CHF 2. Acute exac COPD 3. Pulmonary nodules. Further diagnoses and plan as above.
[2016-06-02] MEDS: *HR* Heparin 5,000 UNIT/ML VIAL SQ SCH ×2 (05:26→14:43)
[2016-06-02 07:25] LABS: Basophils # 0.1 K/mcL (0.0-0.2); Basophils % 0.8 %; Eosinophils # 0.3 K/mcL (0.0-0.6); Eosinophils % 2.3 %; Hematocrit 35.7 % (35.3-44.9); Hemoglobin 11.5 g/dL (11.5-15.4); Immature Granulocytes % 0.3 % (0-4); Lymphocytes % 25.4 %; Mean Corpuscular HGB Conc 32.2 g/dL (31.6-35.5); Mean Corpuscular Hemoglobin 28.7 pg (28.0-33.3); Mean Platelet Volume 11.3 fL (9.4-12.4); Monocytes % 8.5 %; Neutrophils # 7.5 K/mcL (1.6-8.9); Platelet Count 244 K/mcL (140-400); Red Blood Count 4.01 M/mcL (3.82-4.97); Red Cell Distribution Width 16.3 % (11.5-14.5); Segmented Neutrophils % 62.7 %
[2016-06-02 07:37] LABS: Albumin 3.2 g/dL (3.5-5.0); Albumin/Globulin Ratio 0.9 (1.1-2.2); Bilirubin,Total 0.6 mg/dL (0.2-1.2); Calcium 9.1 mg/dL (8.6-10.8); Globulin 3.6 g/dL (2.4-3.5); Potassium 4.1 mEq/L (3.5-4.5); Total Protein 6.8 g/dL (6.0-8.3)
[2016-06-02] MEDS: Budesonide/Formoterol 80/4.5 MDI IH SCH ×2 (07:59→21:24)
[2016-06-02] MEDS: Insulin LISPRO 300 UNITS/3 ML VIAL SQ SCH ×4 (08:30→21:19)
[2016-06-02] MEDS: Aspirin Enteric Coated 81 MG Tablet PO SCH (08:32)
[2016-06-02] MEDS: predniSONE 20 MG TABLET PO SCH (08:32)
[2016-06-02] MEDS: Doxycycline 100 MG CAPSULE PO SCH ×2 (08:32→21:19)
[2016-06-02] MEDS: Lisinopril 20 MG TABLET PO SCH ×2 (08:32→21:20)
[2016-06-02] MEDS: Pregabalin 50 MG CAPSULE PO SCH ×2 (08:32→21:19)
[2016-06-02] MEDS: BuPROPion SR (12 HR) 150 MG TABLET PO SCH ×2 (08:32→21:19)
[2016-06-02] MEDS: Famotidine 20 MG TABLET PO SCH (08:32)
[2016-06-02] MEDS: Insulin NPH 100 UNIT/ML (x5UNIT) SQ SCH ×2 (09:51→21:20)
--- NOTE | 2016-06-02 10:32 | Internal Med Progress Note ---
<UnrulymontrellDeshawn gill - Last Filed: 06/02/16 13:26> Date of Encounter: 06/02/16 Time of Encounter: 10:31 - Assessment and plan (1) Acute exacerbation of chronic obstructive pulmonary disease (COPD) Current Visit: Yes Status: Acute Assessment and plan: Patient admitted with COPD exacerbation requiring 3 L nasal Oxygen to Maintain Oxygen Saturation Greater Than 90%, she was tachypnic with increased sputum production. Patient's shortness of breath was progressive. Suspect more cardiac related with CHF exacerbation versus COPD exacerbation. 06/02/2016: Patient feels SOB improving. She still requires increased oxygen demand. May require home oxygen at discharge. Plan: - Continue antibiotic therapy with doxycycline 100 mg twice a day (day 4/5) - Continue breathing treatments with Proventil nebulizer - Prednisone 40 mg by mouth daily, for total 5 days. (day 4/5) - Continue Symbicort (2) Nodule of left lung Current Visit: No Status: Acute Assessment and plan: Salt nodules measuring up to 1.9 cm x 0.9 cm in the right upper and bilateral lower lobes. Of note one measuring 1.4 cm x 1.1 cm in the right lower lobe has speculated appearing margins. These findings were discussed with pulmonology requesting consult to evaluate the patient. Plan: - Patient will need outpatient follow-up and likely repeat chest CT scan in 3-6 months then 18-24 months. - This has been discussed with Mrs. Armas. (3) Diastolic CHF with preserved left ventricular function, NYHA class 2 Current Visit: Yes Status: Acute Assessment and plan: Mrs. Armas 65 year old female admitted with increasing shortness of breath. History of transesophageal echocardiogram January 2016 demonstrating a left ventricular function of 65-70%, subaortic membrane present with turbulent flow in the LV OT. Gradients were not assessed on this study. Normal right ventricular size and systolic function. Moderate dilated left atrium. Trileaflet aortic valve and mitral thickened leaflets. Mild/moderate aortic stenosis. Aortic valve area 1.52 cm. Moderate aortic regurgitation. Mild to moderate mitral regurgitation. No evidence of intra-atrial shunting noted with saline contrast. - CT of the chest demonstrates bilateral pleural effusions. Patient examination demonstrates mild fluid overload. 06/01/2016: Patient's respiratory status has improved, echocardiogram demonstrates LVEF 65-70%, normal left ventricular size and systolic function, normal right ventricular size and function. Patient continues to be mildly fluid overloaded on examination, respiratory exam improved. Discussed in depth regarding fluid restrictions and diet control. 06/02/2016: Stable respiratory status. Tolerating 2 L oxygen with oxygen saturations greater than 94%. she is -2059 yesterday Plan: - hold Bumex with elevation in creatinine - Cardiac diet - Fluid restrictions - Daily weights (4) Morbid obesity with BMI of 40.0-44.9, adult Current Visit: Yes Status: Chronic Assessment and plan: Patient has a BMI of 41.2 with associated diabetes, obstructive sleep apnea. Weight loss and diet modifications will be highly beneficial in promoting longevity and reducing risk factors for further comorbid disease. (5) NIKOS (obstructive sleep apnea) Current Visit: Yes Status: Chronic Assessment and plan: Patient is morbidly obese with BMI 41.2 and history of obstructive sleep apnea. She wears a BiPAP while sleeping at night, plan to continue BiPAP use while sleeping and at rest during inpatient stay. Plan: -Continue BiPAP while asleep and at rest. - (6) Diabetes Current Visit: Yes Status: Acute Assessment and plan: Patient is diabetic type II, home antihyperglycemic coverage includes metformin 500 mg by mouth twice a day, Novolin and 40 units subcutaneous twice a day. Plan: - Continue inpatient sliding scale high dose. - Continue ACHS glucose checks. Qualifiers: Diabetes mellitus type: type 2 Diabetes mellitus complication status: with hyperglycemia Diabetes mellitus supervisor intermediates insulin use: with group home use Qualified Code(s): E11.65 - Type 2 diabetes mellitus with hyperglycemia; Z79.4 - termination clerk (current) use of insulin (7) Hypothyroidism Current Visit: Yes Status: Acute Assessment and plan: Continue levothyroxin 75mcg by mouth in am. Qualifiers: Qualified Code(s): E03.9 - Hypothyroidism, unspecified (8) HTN (hypertension) Current Visit: Yes Status: Acute Assessment and plan: Continue Lopressor 25 mg by mouth twice a day, lisinopril 20 mg by mouth twice a day. Continue to hold patient's home hydrochlorothiazide 25 mg by mouth daily. Continue monitoring blood pressure. Qualifiers: Qualified Code(s): I10 - Essential (primary) hypertension (9) DVT prophylaxis Current Visit: Yes Status: Acute Assessment and plan: Subcutaneous heparin 5000 units every 8 hours - Subjective Interval history: Ms. Armas has been seen and evaluated this morning. She feels that her breathing is much improved and she becomes less short of breath with ambulation. She has no cough and no sputum production. She does not become dyspneic with decrease in oxygen demand. She has a positive mood today and is hopeful for a discharge tomorrow. She has no further concerns or questions at this time. - Constitutional Vitals: Temp Pulse Resp BP Pulse Ox 97.5 F L 66 17 147/55 94 L 06/02/16 08:42 06/02/16 08:42 06/02/16 08:42 06/02/16 08:42 06/02/16 08:42 General appearance: Present: cooperative, mild distress, A&O X 3, morbidly obese , answers questions appropriately - Head Head exam: Present: atraumatic, normocephalic - Eye Eye exam: Present: PERRL, conjuntiva pink, sclera anicteric Pupils: Present: PERRL - Neck Neck exam general surgery: Present: supple, trachea midline. Absent: lymphadenopathy - Respiratory Respiratory exam: Present: CTAB. Absent: accessory muscle use, rales, rhonchi, wheezes - Cardiovascular Cardiovascular exam: Present: RRR, +S1, +S2. Absent: diastolic murmur, gallop, rubs, systolic murmur Additional comments: Grade 3/6 systolic ejection murmur appreciated in the right upper 2nd intercostal space. - GI/Abdominal GI/Abdominal exam: Present: normal bowel sounds, soft, no peritoneal signs. Absent: distended, tenderness - Extremities Exam Extremities exam: Present: warm, radial pulses palpable and symetrical. Absent : calf tenderness, cyanotic, pedal edema - Neurological Exam Neurological exam: Present: CN II-XII intact, oriented X3, no focal deficits. Absent: pronater drift, facial droop, speech deficit - Psychiatric Psychiatric exam: Present: normal affect, normal mood - Skin Skin exam: Present: dry, intact Internal Medicine: Result - Labs CBC & Chem 7: 06/02/16 07:05 06/02/16 07:05 Labs: Short CBC 06/02/16 Range/Units 07:05 WBC 11.9 H (4.3-11.1) K/mcL Hgb 11.5 (11.5-15.4) g/dL Hct 35.7 (35.3-44.9) % Plt Count 244 (140-400) K/mcL Neutrophils # 7.5 (1.6-8.9) K/mcL BMP 06/02/16 07:05 Sodium 141 Potassium 4.1 Chloride 109 Carbon Dioxide 25 BUN 33 H Creatinine 1.19 H Glucose 79 Calcium 9.1 Liver Function 06/02/16 Range/Units 07:05 Total Bilirubin 0.6 (0.2-1.2) mg/dL AST 18 (5-34) Units/L ALT 25 (0-55) Units/L Alkaline Phosphatase 56 (38-126) Units/L Albumin 3.2 L (3.5-5.0) g/dL - ABG Interpretation ABG results: PT/INR, D-dimer PT 13.2 Seconds (9.4-12.1) H 05/31/16 06:34 Consult Discharge Plan - Plan Referrals: Deny Thomas MD [Primary Care Provider] - 06/06/16 3:15 pm () <Melo Solorio - Last Filed: 06/02/16 16:14> - Assessment and plan (1) Acute and chronic respiratory failure with hypoxia Current Visit: Yes Status: Acute Assessment and plan: Continue to wean as able. May need at discharge. (2) Acute exacerbation of CHF (congestive heart failure) Current Visit: Yes Status: Acute Assessment and plan: Cautious diuresis with renal function. Qualifiers: Congestive heart failure type: diastolic Qualified Code(s): I50.33 - Acute on chronic diastolic (congestive) heart failure (3) Diabetes Current Visit: Yes Status: Acute Qualifiers: Diabetes mellitus type: type 2 Diabetes mellitus complication status: with hyperglycemia Diabetes mellitus supervisor intermediates insulin use: with group home use Qualified Code(s): E11.65 - Type 2 diabetes mellitus with hyperglycemia; Z79.4 - halfway (current) use of insulin (4) HTN (hypertension) Current Visit: Yes Status: Acute Qualifiers: Hypertension type: essential hypertension Qualified Code(s): I10 - Essential (primary) hypertension (5) Hypothyroidism Current Visit: Yes Status: Acute Qualifiers: Hypothyroidism type: acquired Qualified Code(s): E03.9 - Hypothyroidism, unspecified (6) NIKOS (obstructive sleep apnea) Current Visit: Yes Status: Chronic (7) Morbid obesity with BMI of 40.0-44.9, adult Current Visit: Yes Status: Chronic (8) Pulmonary nodules Current Visit: Yes Status: Acute (9) Secondary pulmonary hypertension Current Visit: Yes Status: Acute - Constitutional Vitals: Temp Pulse Resp BP Pulse Ox 97.8 F 66 17 130/75 94 L 06/02/16 15:25 06/02/16 15:25 06/02/16 15:25 06/02/16 15:25 06/02/16 15:25 Internal Medicine: Result - Labs CBC & Chem 7: 06/02/16 07:05 06/02/16 07:05 Labs: Short CBC 06/02/16 Range/Units 07:05 WBC 11.9 H (4.3-11.1) K/mcL Hgb 11.5 (11.5-15.4) g/dL Hct 35.7 (35.3-44.9) % Plt Count 244 (140-400) K/mcL Neutrophils # 7.5 (1.6-8.9) K/mcL BMP 06/02/16 07:05 Sodium 141 Potassium 4.1 Chloride 109 Carbon Dioxide 25 BUN 33 H Creatinine 1.19 H Glucose 79 Calcium 9.1 Liver Function 06/02/16 Range/Units 07:05 Total Bilirubin 0.6 (0.2-1.2) mg/dL AST 18 (5-34) Units/L ALT 25 (0-55) Units/L Alkaline Phosphatase 56 (38-126) Units/L Albumin 3.2 L (3.5-5.0) g/dL - ABG Interpretation ABG results: PT/INR, D-dimer PT 13.2 Seconds (9.4-12.1) H 05/31/16 06:34 - Attending Attestation I examined this patient and my medical decision-making was reviewed with the Resident Physician on 06/02/16. I agree with the documented findings, disposition and treatment plan as described except to the extent set forth below. Ms. Armas is currently admitted for acute hypoxic resp failure, CHF. SHe remains moderate risk due to potential for worsening respiratory status. Ms. Armas is resting in bed. She is acutally doing better with less fluid. No CP. Less cough. No GI symptoms. Exam Alert. Comfortable Heart reg Lungs diminished but clear Abd soft I/P 1. Acute hypoxic resp failure 2. Acute exac CHF Further diagnoses and plan as above.
[2016-06-03] MEDS: *HR* Heparin 5,000 UNIT/ML VIAL SQ SCH ×2 (01:07→06:05)
[2016-06-03] MEDS ORDERED: Ibuprofen 600 MG TABLET PO ONE (03:12)
[2016-06-03] MEDS ORDERED: Ibuprofen 400 MG TABLET PO ONE (03:30)
[2016-06-03] MEDS: Insulin LISPRO 300 UNITS/3 ML VIAL SQ SCH ×2 (07:50→11:38)
[2016-06-03] MEDS: Budesonide/Formoterol 80/4.5 MDI IH SCH (08:25)
[2016-06-03 08:30] LABS: Basophils # 0.1 K/mcL (0.0-0.2); Basophils % 0.9 %; Eosinophils # 0.4 K/mcL (0.0-0.6); Eosinophils % 3.4 %; Hematocrit 37.3 % (35.3-44.9); Hemoglobin 11.7 g/dL (11.5-15.4); Immature Granulocytes % 0.2 % (0-4); Lymphocytes # 3.3 K/mcL (0.6-4.6); Lymphocytes % 26.6 %; Mean Corpuscular HGB Conc 31.4 g/dL (31.6-35.5); Mean Corpuscular Hemoglobin 28.3 pg (28.0-33.3); Mean Corpuscular Volume 90.3 fL (83.0-100.0); Monocytes # 1.2 K/mcL (0.0-1.3); Monocytes % 9.7 %; Neutrophils # 7.2 K/mcL (1.6-8.9); Platelet Count 233 K/mcL (140-400); Red Blood Count 4.13 M/mcL (3.82-4.97); Red Cell Distribution Width 16.4 % (11.5-14.5); Segmented Neutrophils % 59.2 %
[2016-06-03 08:42] LABS: Calcium 9.6 mg/dL (8.6-10.8); Potassium 4.2 mEq/L (3.5-4.5)
[2016-06-03] MEDS: predniSONE 20 MG TABLET PO SCH (10:06)
[2016-06-03] MEDS: Aspirin Enteric Coated 81 MG Tablet PO SCH (10:06)
[2016-06-03] MEDS: Doxycycline 100 MG CAPSULE PO SCH (10:06)
[2016-06-03] MEDS: Famotidine 20 MG TABLET PO SCH (10:06)
[2016-06-03] MEDS: Pregabalin 50 MG CAPSULE PO SCH (10:06)
[2016-06-03] MEDS: BuPROPion SR (12 HR) 150 MG TABLET PO SCH (10:06)
[2016-06-03] MEDS: Insulin NPH 100 UNIT/ML (x5UNIT) SQ SCH (10:06)
[2016-06-03] MEDS: Lisinopril 20 MG TABLET PO SCH (10:06)
[2016-06-03 11:06] VITALS: BP 163/75
--- NOTE | 2016-06-03 11:33 | Discharge Summary ---
<DakotahjairoDeshawn Carlos Eduardo - Last Filed: 06/03/16 18:15> Date of Encounter: 06/03/16 Time of Encounter: 08:00 - Discharge Diagnosis (1) Acute exacerbation of chronic obstructive pulmonary disease (COPD) Priority: Primary Status: Acute (2) Nodule of left lung Priority: Primary Status: Acute (3) Diastolic CHF with preserved left ventricular function, NYHA class 2 Priority: Primary Status: Acute (4) Morbid obesity with BMI of 40.0-44.9, adult Priority: Secondary Status: Chronic (5) NIKOS (obstructive sleep apnea) Priority: Secondary Status: Chronic (6) Diabetes Priority: Secondary Status: Acute Qualifiers: Diabetes mellitus type: type 2 Diabetes mellitus complication status: with hyperglycemia Diabetes mellitus fdc insulin use: with fdc use Qualified Code(s): E11.65 - Type 2 diabetes mellitus with hyperglycemia; Z79.4 - FDC (current) use of insulin (7) Hypothyroidism Priority: Secondary Status: Acute Qualifiers: Hypothyroidism type: acquired Qualified Code(s): E03.9 - Hypothyroidism, unspecified (8) HTN (hypertension) Priority: Secondary Status: Acute Qualifiers: Hypertension type: essential hypertension Qualified Code(s): I10 - Essential (primary) hypertension (9) DVT prophylaxis Priority: Secondary Status: Acute - Discharge Medications Prescriptions: Doxycycline 100 mg PO BID #2 capsule Home Medications: Albuterol Neb [Proventil Neb] 2.5 mg IH QID PRN 05/30/16 [History] Albuterol Sulfate [Albuterol Inhaler] 2 puff IH Q6H PRN 05/30/16 [History] Aspirin Enteric Coated [Aspirin EC] 81 mg PO DAILY 05/30/16 [History] BuPROPion XL (24 HR) [Wellbutrin Xl] 150 mg PO BID 05/30/16 [History] Ergocalciferol (VITAMIN D2) [Vitamin D2] 50,000 unit PO TH 05/30/16 [History] Flaxseed/Omega3,6,9/Fatty Acid [Flax Seed Oil 1,300 mg Softgel] 1 each PO BID [History] Hydrochlorothiazide 25 mg PO DAILY 05/30/16 [History] Insulin NPH Human Isophane [Novolin N] 40 unit SQ BID 05/30/16 [History] Levothyroxine [Synthroid] 75 mcg PO 0630 05/30/16 [History] Lisinopril [Zestril] 20 mg PO BID 05/30/16 [History] Metformin [Glucophage] 500 mg PO BIDWM 05/30/16 [History] Metoprolol [Lopressor] 25 mg PO BID 05/30/16 [History] Multivit-Min/Folic Acid/Vit K1 [Multi For Her 50 Plus Softgel] 1 each PO DAILY 05/30/16 [History] Paroxetine HCl 30 mg PO QAM 05/30/16 [History] Pregabalin [Lyrica] 50 mg PO BID 05/30/16 [History] Vitamin B Complex 1 each PO DAILY 05/30/16 [History] Doxycycline 100 mg PO BID #2 capsule 06/03/16 [Rx] Allergies/Adverse Reactions: Allergies cephalexin [From Keflex] Allergy (Verified 03/22/15 04:48) Rash ciprofloxacin [From Cipro] Allergy (Verified 03/22/15 04:48) Rash Sulfa (Sulfonamide Antibiotics) Allergy (Verified 03/22/15 04:48) Rash tetanus immune globulin Allergy (Verified 03/22/15 04:48) See Comments swelling of arm codeine Adverse Reaction (Verified 02/14/16 08:12) Hallucinating Date of admission: 05/31/16 18:16 Primary care physician: Deny Thomas MD Discharging clinician: Deshawn Tamayo Anticipated date of discharge: 06/03/16 - Patient Status Disposition: Home, Self-Care Condition: Fair Functional capacity at discharge: independent ambulation Overall status at discharge: patient is back to baseline - Discharge Instructions Instructions: Doxycycline (By mouth), Heart Failure (DC), Chronic Obstructive Pulmonary Disease (DC) Follow Up With: Deny Thomas MD [Primary Care Provider] - 06/06/16 3:15 pm () Additional Instructions: I recommend completing antibiotic as prescribed Recommend close follow-up with your primary care provider in the next 3-5 days. - Diet and Activity Activity: increase activity as tolerated Diet: advance to your usual diet, low salt diet Interval History: 65yof hx of CHF Congenital HD subaortic membrane, patient has a history of diastolic heart failure, NIKOS, morbid obesity, was admitted to the general medical floor with acute on chronic respiratory failure with hypoxia and acute exacerbation of COPD. She is placed on 3 L nasal cannula oxygen to maintain oxygen saturations greater than 90% started on doxycycline 100 mg twice a day, started on duo nebs and Proventil nebulizers, prednisone 40 mg by mouth daily. She underwent both a CTA and chest CT which demonstrated bilateral pleural effusions and identified solid nodules measuring up to 1.9 cm x 0.9 cm in the right upper and bilateral lobes. She is also noted to have aortic stenosis and diastolic heart failure for which fluid restrictions and cardiac diet were initiated. She was started on gentle diuresis with IV Lasix. Pulmonology was consult to input on findings. Immunology determined her respiratory failure is multifactorial due to large part to congestive heart failure and subvalvular aortic stenosis. It was recommended she establish with pulmonology post discharge and repeat CT of the chest in 3 months. Throughout her inpatient stay her vitals remain stable she was afebrile without tachypnea, oxygen requirements were weaned down to the time of discharge she was discharged without oxygen after successfully completing a 6 minute walk oxygen qualifier. Of significance for laboratory results she develops an increase in her creatinine and Lasix was reduced with improvement during her admission stay. Mrs. Armas was seen and evaluated date of discharge of 06/03/2016 and deemed stable for discharge home. - Recommend follow-ups with PCP in 3-5 days, she should follow-up with pulmonology after completion of the CT scan of the chest for nodule evaluation in 3 months. - She is to discuss with her PCP, scheduling a chest CT for evaluation of her nodules in 3 months. - Complete last day of doxycycline as prescribed. Hospital course: Ms. Armas is a 65 year old female - Time Spent with Patient Total time spent providing and/or coordinating discharge services: - Constitutional Vitals: Temp Pulse Resp BP Pulse Ox 97.7 F 59 16 163/75 94 L 06/03/16 11:00 06/03/16 11:00 06/03/16 11:00 06/03/16 11:06/03/16 11:00 General appearance: Present: cooperative, mild distress, A&O X 3, morbidly obese , answers questions appropriately - Head Head exam: Present: atraumatic, normocephalic - Eye Eye exam: Present: PERRL, conjuntiva pink, sclera anicteric Pupils: Present: PERRL - Neck Neck exam general surgery: Present: supple, trachea midline. Absent: lymphadenopathy - Respiratory Respiratory exam: Present: CTAB. Absent: accessory muscle use, rales, rhonchi, wheezes - Cardiovascular Cardiovascular exam: Present: RRR, +S1, +S2. Absent: diastolic murmur, gallop, rubs, systolic murmur Additional comments: Grade 3/6 systolic ejection murmur appreciated more so over the right second intercostal space. - GI/Abdominal GI/Abdominal exam: Present: normal bowel sounds, soft, no peritoneal signs. Absent: distended, tenderness - Extremities Exam Extremities exam: Present: warm, radial pulses palpable and symetrical. Absent : calf tenderness, cyanotic, pedal edema - Neurological Exam Neurological exam: Present: alert, oriented X3, no focal deficits. Absent: pronater drift, facial droop, speech deficit - Psychiatric Psychiatric exam: Present: normal affect, normal mood - Skin Skin exam: Present: dry, intact <Melo Solorio - Last Filed: 06/10/16 18:26> - Discharge Diagnosis (1) Acute and chronic respiratory failure with hypoxia Status: Acute (2) Acute exacerbation of CHF (congestive heart failure) Status: Acute Qualifiers: Congestive heart failure type: diastolic Qualified Code(s): I50.33 - Acute on chronic diastolic (congestive) heart failure (3) Diabetes Status: Acute Qualifiers: Diabetes mellitus type: type 2 Diabetes mellitus complication status: with hyperglycemia Diabetes mellitus long term acute care registered nurse insulin use: with fdc use Qualified Code(s): E11.65 - Type 2 diabetes mellitus with hyperglycemia; Z79.4 - FDC (current) use of insulin (4) HTN (hypertension) Status: Acute Qualifiers: Hypertension type: essential hypertension Qualified Code(s): I10 - Essential (primary) hypertension (5) Hypothyroidism Status: Acute Qualifiers: Hypothyroidism type: acquired Qualified Code(s): E03.9 - Hypothyroidism, unspecified (6) NIKOS (obstructive sleep apnea) Status: Chronic (7) Morbid obesity with BMI of 40.0-44.9, adult Status: Chronic (8) Pulmonary nodules Status: Acute (9) Secondary pulmonary hypertension Status: Acute Date of admission: 05/31/16 18:16 Primary care physician: Deny Thomas MD Hospital course: Ms. Armas is a 65 year old female - Time Spent with Patient Total time spent providing and/or coordinating discharge services: 39min - Constitutional Vitals: Temp Pulse Resp BP Pulse Ox 97.7 F 59 16 163/75 94 L 06/03/16 11:00 06/03/16 11:00 06/03/16 11:00 06/03/16 11:00 06/03/16 11:00 - Attending Attestation I examined this patient and my medical decision-making was reviewed with the Resident Physician on 06/03/16. I agree with the documented findings, disposition and treatment plan as described except to the extent set forth below. Ms. Armas is feeling better today. Her breathing is almost baseline. No fever and vitals stable. Exam Alert. Comfortable Heart reg No wheeze Plan D/C today Follow up as outpatient.
== END 2016-06-03 13:54 | disposition home or self-care (01) | DRG 291 ==
LOC: EMEROO 13:42 → 2ANU 13:42
PROVIDERS: ADMIT Internal Medicine; ATTEND Internal Medicine

== ENCOUNTER 2018-01-15 12:00 | Observation (INO) ==
--- NOTE | 2018-01-15 12:19 | Emergency Department Note ---
Disposition Clinical Impression: CHF exacerbation Qualifiers: Heart failure type: diastolic Qualified Code(s): I50.33 - Acute on chronic diastolic (congestive) heart failure Disposition: Admitted As Inpatient Condition: Fair Referrals: NONE,PCP [Non-Partnered Physician] - Forms: ED Satisfaction Letter Time of Disposition: 14:31 General Adult HPI - General Chief complaint: ED Shortness of Breath/Dyspnea Stated complaint: ELVIE Time Seen by Provider: 01/15/18 12:03 Source: patient, EMS Limitations: no limitations Nursing Notes Reviewed: Yes Vital Signs Reviewed: Yes - History of Present Illness HPI Narrative: Patient's a 67-year-old female with history of congenital heart disease, CHF, NIKOS, hypertension, COPD, diabetes with neuropathy who presents the emergency department with complaints of shortness of breath over the last month but worsened over the last day. She states that she has noticed dyspnea with exertion but also at rest as well as intermittent chest pain, bilateral leg swelling, and orthopnea. She utilizes CPAP at night and has not recently used her albuterol inhaler as she denies any wheezing. She has a planned cath next month at [facility] to monitor her congenital HD. Otherwise denies any fever, cough, nausea, vomiting, abdominal pain, or unilateral leg swelling. Pain Scale: 0 - Related Data Home Medications Medication Instructions Recorded Confirmed Albuterol Sulfate [Albuterol 2 puff IH Q6H PRN 05/30/16 08/09/16 Inhaler] Aspirin Enteric Coated [Aspirin EC] 81 mg PO DAILY 05/30/16 08/09/16 BuPROPion XL (24 HR) [Wellbutrin 150 mg PO BID 05/30/16 08/09/16 Xl] Ergocalciferol (VITAMIN D2) 50,000 unit PO TH 05/30/16 08/09/16 [Vitamin D2] Flaxseed/Omega3,6,9/Fatty Acid 1 each PO BID 05/30/16 08/09/16 [Flax Seed Oil 1,300 mg Softgel] Insulin NPH Human Isophane 40 unit SQ BID 05/30/16 08/09/16 [Novolin N] Lisinopril [Zestril] 20 mg PO DAILY 05/30/16 09/21/16 Multivit-Min/Folic Acid/Vit K1 1 each PO DAILY 05/30/16 08/09/16 [Multi For Her 50 Plus Softgel] PARoxetine HCl [Paroxetine HCl] 30 mg PO QAM 05/30/16 08/09/16 Vitamin B Complex 1 each PO QMWFSA 05/30/16 05/30/16 Carvedilol 12.5 mg PO BID 08/09/16 08/09/16 Furosemide [Lasix] 40 mg PO DAILY 08/09/16 08/09/16 Sinvisk 1 QWEEK 09/14/16 Lyrica 50 mg PO BID 10/19/16 10/19/16 Glimepiride [Amaryl] 1 mg PO DAILY 11/01/16 11/01/16 Repaglinide [Prandin] 1 mg PO TID 11/05/16 11/05/16 Previous Rx's Medication Instructions Recorded predniSONE [PredniSONE] 60 mg PO DAILY 7 Days tablet 11/01/16 Allergies Allergy/AdvReac Type Severity Reaction Status Date / Time cephalexin [From Keflex] Allergy Rash Verified 10/23/17 13:45 ciprofloxacin [From Cipro] Allergy Rash Verified 10/23/17 13:45 Sulfa (Sulfonamide Allergy Rash Verified 10/23/17 13:45 Antibiotics) tetanus immune globulin Allergy See Verified 10/23/17 13:45 Comments codeine AdvReac Hallucinati Verified 10/23/17 13:45 ng All systems ED: reviewed and negative except as stated. Review of Systems: As Per HPI Past Medical History - Past Medical History Attestation: Yes The following information was validated with the patient. Source: patient, old records reviewed Medical history: Reports: arthritis, asthma, cardiomyopathy, CHF, COPD, diabetes, GERD, hyperlipidemia, hypertension, kidney stones, osteoporosis, thyroid disease, syncope, valvular heart disease, other Surgical history: Reports: hysterectomy, other Psychiatric history: Reports: anxiety, depression - Social History Smoking Status: Never smoker Smokeless Tobacco Status: No Alcohol use: Reports: none Drug use: Reports: none Physical Exam - General Limitations: no limitations General appearance: alert, in no apparent distress - Head Head exam: atraumatic, normocephalic - Neck Neck exam: Present: normal inspection - Respiratory Respiratory exam: Present: normal lung sounds bilaterally, prolonged expiratory phase, other (intermittently pauses to catch her breath at the end of sentences.). Absent: respiratory distress, wheezes, stridor - Cardiovascular Cardiovascular exam: Present: normal rhythm, bradycardia, systolic murmur - Abdominal Exam Abdominal exam: Present: soft, Non-Tender. Absent: distention, guarding, rebound, rigidity - Extremities Exam Extremities exam: Present: full ROM, pedal edema (1+). Absent: joint swelling - Neurological Exam Neurological exam: Present: alert, oriented X3 - Psychiatric Psychiatric exam: Present: normal affect, normal mood - Skin Skin exam: Present: warm, dry, intact Course Course Narrative: Patient's presentation seems consistent with CHF exacerbation given her orthopnea, peripheral edema and shortness of breath. EKG shows new inverted T waves in V5, V6. We will continue to reassess with repeat EKG and obtain troponin, 2 view chest x-ray, CBC, BMP, PT/INR, and BNP. Given patient's many comorbidities will likely require admission. Vital Signs Temperature 98.9 F 01/15/18 12:01 Pulse Rate 59 01/15/18 12:01 Respiratory Rate 18 01/15/18 12:01 Blood Pressure 143/49 01/15/18 12:01 O2 Sat by Pulse Oximetry 95 01/15/18 12:01 Temperature 98.9 F 01/15/18 12:01 Pulse Rate 59 01/15/18 12:01 Respiratory Rate 18 01/15/18 12:01 Blood Pressure 143/49 01/15/18 12:01 O2 Sat by Pulse Oximetry 96 01/15/18 12:06 Oxygen Delivery Oxygen Delivery Nasal Cannula Medical Decision Making - MDM Narrative Medical decision making narrative: Given her symptoms, presentation consistent with CHF exacerbation. Less likely COPD as she is not wheezing. EKG does show new inverted T waves in V5 and V6. Troponin normal. Other lab work including CBC and UA unremarkable. Does show kidney injury with threatening at 1.24 but does appear she has chronic kidney disease. Patient continues to feel short of breath and will therefore be admitted. Discussed case with Dr. Smallwood who will admit. The patient agrees with and understands the course of treatment plan including plan for admission. All questions answered. - Medical Records Medical records reviewed: Yes I reviewed the patient's medical records. - Lab Data Lab results reviewed: Yes I reviewed the patient's lab results. Result diagrams: 01/15/18 12:36 01/15/18 12:36 Lab Results 01/15/18 01/15/18 01/15/18 Range/Units 12:36 12:36 12:36 WBC 7.6 (4.3-11.1) K/mcL RBC 4.17 (3.82-4.97) M/mcL Hgb 12.0 (11.5-15.4) g/dL Hct 37.7 (35.3-44.9) % MCV 90.4 (83.0-100.0) fL MCH 28.8 (28.0-33.3) pg MCHC 31.8 (31.6-35.5) g/dL RDW 13.5 (11.5-14.5) % Plt Count 235 (140-400) K/mcL MPV 11.0 (9.4-12.4) fL Immature Gran % 0.3 (0-4) % Seg Neutrophils % 67.5 % Lymphocytes % 20.2 % Monocytes % 8.3 % Eosinophils % 2.8 % Basophils % 0.9 % Neutrophils # 5.1 (1.6-8.9) K/mcL Lymphocytes # 1.5 (0.6-4.6) K/mcL Monocytes # 0.6 (0.0-1.3) K/mcL Eosinophils # 0.2 (0.0-0.6) K/mcL Basophils # 0.1 (0.0-0.2) K/mcL PT 12.3 H (9.4-12.1) Seconds INR 1.1 Sodium 141 (136-145) mEq/L Potassium 4.0 (3.5-5.1) mEq/L Chloride 107 (98-107) mEq/L Carbon Dioxide 26 (23-29) mEq/L BUN 26 H (8-23) mg/dL Creatinine 1.24 H (0.60-1.20) mg/dL Est GFR ( Amer) 52 L (> 60) Est GFR (Non-Af Amer) 43 L (> 60) BUN/Creatinine Ratio 21 (6-26) Glucose 63 L (70-105) mg/dL Calculated Osmolality 295 (280-300) Calcium 9.6 (8.6-10.3) mg/dL Total Bilirubin 0.4 (0.3-1.0) mg/dL AST 15 (13-39) Units/L ALT 12 (7-52) Units/L Alkaline Phosphatase 59 (34-104) Units/L Troponin I < 0.03 (< 0.04) ng/mL B-Natriuretic Peptide (Less than 100) pg/mL Serum Total Protein 6.8 (6.4-8.9) g/dL Albumin 3.6 (3.5-5.7) g/dL Globulin 3.2 (2.4-3.5) g/dL Albumin/Globulin Ratio 1.1 (1.1-2.2) Urine Color (Yellow) Urine Clarity (Clear) Urine pH (5.0-8.0) pH Units Ur Specific [place] (1.010-1.025) Urine Protein (Neg-Trace) mg/dL Urine Glucose (UA) (Normal) mg/dL Urine Ketones (Negative) mg/dL Urine Blood (Negative) Urine Nitrite (Negative) Urine Bilirubin (Negative) Urine Urobilinogen (Normal) mg/dL Ur Leukocyte Esterase (Negative) Ur Culture Indicated? (NO) 01/15/18 01/15/18 Range/Units 12:36 13:33 WBC (4.3-11.1) K/mcL RBC (3.82-4.97) M/mcL Hgb (11.5-15.4) g/dL Hct (35.3-44.9) % MCV (83.0-100.0) fL MCH (28.0-33.3) pg MCHC (31.6-35.5) g/dL RDW (11.5-14.5) % Plt Count (140-400) K/mcL MPV (9.4-12.4) fL Immature Gran % (0-4) % Seg Neutrophils % % Lymphocytes % % Monocytes % % Eosinophils % % Basophils % % Neutrophils # (1.6-8.9) K/mcL Lymphocytes # (0.6-4.6) K/mcL Monocytes # (0.0-1.3) K/mcL Eosinophils # (0.0-0.6) K/mcL Basophils # (0.0-0.2) K/mcL PT (9.4-12.1) Seconds INR Sodium (136-145) mEq/L Potassium (3.5-5.1) mEq/L Chloride (98-107) mEq/L Carbon Dioxide (23-29) mEq/L BUN (8-23) mg/dL Creatinine (0.60-1.20) mg/dL Est GFR ( Amer) (> 60) Est GFR (Non-Af Amer) (> 60) BUN/Creatinine Ratio (6-26) Glucose (70-105) mg/dL Calculated Osmolality (280-300) Calcium (8.6-10.3) mg/dL Total Bilirubin (0.3-1.0) mg/dL AST (13-39) Units/L ALT (7-52) Units/L Alkaline Phosphatase (34-104) Units/L Troponin I (< 0.04) ng/mL B-Natriuretic Peptide 281 H (Less than 100) pg/mL Serum Total Protein (6.4-8.9) g/dL Albumin (3.5-5.7) g/dL Globulin (2.4-3.5) g/dL Albumin/Globulin Ratio (1.1-2.2) Urine Color Yellow (Yellow) Urine Clarity Clear (Clear) Urine pH 6.0 (5.0-8.0) pH Units Ur Specific [place] 1.008 L (1.010-1.025) Urine Protein Negative (Neg-Trace) mg/dL Urine Glucose (UA) Normal (Normal) mg/dL Urine Ketones Negative (Negative) mg/dL Urine Blood Negative (Negative) Urine Nitrite Negative (Negative) Urine Bilirubin Negative (Negative) Urine Urobilinogen Normal (Normal) mg/dL Ur Leukocyte Esterase Negative (Negative) Ur Culture Indicated? NO (NO) - Radiology Data Radiology results reviewed: Yes I reviewed the patient's radiology results. Chest X-Ray 01/15/18 12:18 IMPRESSION: No acute process. D/ / Branden Vaughn MD / Branden Vaughn MD Interpreting Provider: Branden Vaughn MD - EKG Data EKG #1 EKG attestation: Yes I reviewed and interpreted this EKG. EKG results narrative: Sinus rhythm rate of 58. W[place] 153 QRS 90, QT 423, QTC 416. Normal axis. When compared to 10/23/17, there are new inverted T waves in V5 and V6.
[2018-01-15 13:24] LABS: Basophils # 0.1 K/mcL (0.0-0.2); Basophils % 0.9 %; Eosinophils # 0.2 K/mcL (0.0-0.6); Eosinophils % 2.8 %; Hematocrit 37.7 % (35.3-44.9); Immature Granulocytes % 0.3 % (0-4); Lymphocytes # 1.5 K/mcL (0.6-4.6); Lymphocytes % 20.2 %; Mean Corpuscular HGB Conc 31.8 g/dL (31.6-35.5); Mean Corpuscular Hemoglobin 28.8 pg (28.0-33.3); Mean Corpuscular Volume 90.4 fL (83.0-100.0); Monocytes # 0.6 K/mcL (0.0-1.3); Monocytes % 8.3 %; Neutrophils # 5.1 K/mcL (1.6-8.9); Platelet Count 235 K/mcL (140-400); Red Blood Count 4.17 M/mcL (3.82-4.97); Red Cell Distribution Width 13.5 % (11.5-14.5); Segmented Neutrophils % 67.5 %
[2018-01-15 13:25] LABS: Alanine Aminotransferase 12 Units/L (7-52); Albumin 3.6 g/dL (3.5-5.7); Albumin/Globulin Ratio 1.1 (1.1-2.2); Alkaline Phosphatase 59 Units/L (34-104); Aspartate Amino Transferase 15 Units/L (13-39); BUN/Creatinine Ratio 21 (6-26); Bilirubin,Total 0.4 mg/dL (0.3-1.0); Blood Urea Nitrogen 26 mg/dL (8-23); Calcium 9.6 mg/dL (8.6-10.3); Carbon Dioxide 26 mEq/L (23-29); Chloride 107 mEq/L (98-107); Globulin 3.2 g/dL (2.4-3.5); Glucose 63 mg/dL (70-105); Osmolality,Calculated 295 (280-300); Sodium 141 mEq/L (136-145); Total Protein 6.8 g/dL (6.4-8.9); Troponin I < 0.03 ng/mL (< 0.04); eGFR For Non-African Americans 43 (> 60)
[2018-01-15 13:30] LABS: INR 1.1; Prothrombin Time 12.3 Seconds (9.4-12.1)
[2018-01-15 13:56] LABS: Bilirubin,Urine Negative (Negative); Blood,Urine Negative (Negative); Clarity,Urine Clear (Clear); Color,Urine Yellow (Yellow); Glucose,Urine (UA) Normal (Normal); Ketones,Urine Negative (Negative); Leukocyte Esterase,Urine Negative (Negative); Nitrite,Urine Negative (Negative); Protein,Urine Negative (Neg-Trace); Specific Gravity,Urine 1.008 (1.010-1.025); Urobilinogen,Urine Normal (Normal)
[2018-01-15] MEDS ORDERED: Aspirin 325 MG TABLET PO ONE (15:15)
--- NOTE | 2018-01-15 15:15 | Emergency Department Note ---
Disposition Clinical Impression: CHF exacerbation Qualifiers: Heart failure type: diastolic Qualified Code(s): I50.33 - Acute on chronic diastolic (congestive) heart failure Disposition: Admitted As Inpatient Condition: Fair General Adult HPI - General Chief complaint: ED Shortness of Breath/Dyspnea Stated complaint: ELVIE Time Seen by Provider: 01/15/18 12:03 Source: patient, EMS Limitations: no limitations - History of Present Illness Pain Scale: 0 - Related Data Home Medications Medication Instructions Recorded Confirmed Albuterol Sulfate [Albuterol 2 puff IH Q6H PRN 05/30/16 01/15/18 Inhaler] Aspirin Enteric Coated [Aspirin EC] 81 mg PO DAILY 05/30/16 01/15/18 BuPROPion XL (24 HR) [Wellbutrin 150 mg PO BID 05/30/16 01/15/18 Xl] Ergocalciferol (VITAMIN D2) 50,000 unit PO TH 05/30/16 01/15/18 [Vitamin D2] Flaxseed/Omega3,6,9/Fatty Acid 1 each PO BID 05/30/16 01/15/18 [Flax Seed Oil 1,300 mg Softgel] Insulin NPH Human Isophane 40 unit SQ BID 05/30/16 01/15/18 [Novolin N] Multivit-Min/Folic Acid/Vit K1 1 each PO DAILY 05/30/16 01/15/18 [Multi For Her 50 Plus Softgel] Vitamin B Complex 1 each PO QMWFSA 05/30/16 01/15/18 Carvedilol 12.5 mg PO BID 08/09/16 01/15/18 Furosemide [Lasix] 40 mg PO DAILY 08/09/16 01/15/18 Citalopram Hydrobromide 10 mg PO DAILY 01/15/18 01/15/18 [Citalopram HBr] Insulin Regular, Human [Novolin R] 20 unit SQ TID 01/15/18 01/15/18 Lisinopril [Zestril] 10 mg PO DAILY 01/15/18 01/15/18 Montelukast [Singulair] 10 mg PO DAILY 01/15/18 01/15/18 Pregabalin [Lyrica] 75 mg PO BID 01/15/18 01/15/18 Allergies Allergy/AdvReac Type Severity Reaction Status Date / Time cephalexin [From Keflex] Allergy Rash Verified 10/23/17 13:45 ciprofloxacin [From Cipro] Allergy Rash Verified 10/23/17 13:45 Sulfa (Sulfonamide Allergy Rash Verified 10/23/17 13:45 Antibiotics) tetanus immune globulin Allergy See Verified 10/23/17 13:45 Comments codeine AdvReac Hallucinati Verified 10/23/17 13:45 ng Past Medical History - Past Medical History Medical history: Reports: arthritis, asthma, cardiomyopathy, CHF, COPD, diabetes, GERD, hyperlipidemia, hypertension, kidney stones, osteoporosis, thyroid disease, syncope, valvular heart disease, other Surgical history: Reports: hysterectomy, other Psychiatric history: Reports: anxiety, depression - Social History Smoking Status: Never smoker Smokeless Tobacco Status: No Alcohol use: Reports: none Drug use: Reports: none Physical Exam - General Limitations: no limitations General appearance: alert, in no apparent distress Course Vital Signs Temperature 98.9 F 01/15/18 12:01 Pulse Rate 59 01/15/18 12:01 Respiratory Rate 18 01/15/18 12:01 Blood Pressure 143/49 01/15/18 12:01 O2 Sat by Pulse Oximetry 95 01/15/18 12:01 Temperature 98.9 F 01/15/18 12:01 Pulse Rate 59 01/15/18 12:01 Respiratory Rate 18 01/15/18 12:01 Blood Pressure 143/49 01/15/18 12:01 O2 Sat by Pulse Oximetry 96 01/15/18 12:06 Oxygen Delivery Oxygen Delivery Nasal Cannula Medical Decision Making - Lab Data Result diagrams: 01/15/18 12:36 01/15/18 12:36 Lab Results 01/15/18 01/15/18 01/15/18 Range/Units 12:36 12:36 12:36 WBC 7.6 (4.3-11.1) K/mcL RBC 4.17 (3.82-4.97) M/mcL Hgb 12.0 (11.5-15.4) g/dL Hct 37.7 (35.3-44.9) % MCV 90.4 (83.0-100.0) fL MCH 28.8 (28.0-33.3) pg MCHC 31.8 (31.6-35.5) g/dL RDW 13.5 (11.5-14.5) % Plt Count 235 (140-400) K/mcL MPV 11.0 (9.4-12.4) fL Immature Gran % 0.3 (0-4) % Seg Neutrophils % 67.5 % Lymphocytes % 20.2 % Monocytes % 8.3 % Eosinophils % 2.8 % Basophils % 0.9 % Neutrophils # 5.1 (1.6-8.9) K/mcL Lymphocytes # 1.5 (0.6-4.6) K/mcL Monocytes # 0.6 (0.0-1.3) K/mcL Eosinophils # 0.2 (0.0-0.6) K/mcL Basophils # 0.1 (0.0-0.2) K/mcL PT 12.3 H (9.4-12.1) Seconds INR 1.1 Sodium 141 (136-145) mEq/L Potassium 4.0 (3.5-5.1) mEq/L Chloride 107 (98-107) mEq/L Carbon Dioxide 26 (23-29) mEq/L BUN 26 H (8-23) mg/dL Creatinine 1.24 H (0.60-1.20) mg/dL Est GFR ( Amer) 52 L (> 60) Est GFR (Non-Af Amer) 43 L (> 60) BUN/Creatinine Ratio 21 (6-26) Glucose 63 L (70-105) mg/dL Calculated Osmolality 295 (280-300) Calcium 9.6 (8.6-10.3) mg/dL Total Bilirubin 0.4 (0.3-1.0) mg/dL AST 15 (13-39) Units/L ALT 12 (7-52) Units/L Alkaline Phosphatase 59 (34-104) Units/L Troponin I < 0.03 (< 0.04) ng/mL B-Natriuretic Peptide (Less than 100) pg/mL Serum Total Protein 6.8 (6.4-8.9) g/dL Albumin 3.6 (3.5-5.7) g/dL Globulin 3.2 (2.4-3.5) g/dL Albumin/Globulin Ratio 1.1 (1.1-2.2) Urine Color (Yellow) Urine Clarity (Clear) Urine pH (5.0-8.0) pH Units Ur Specific [place] (1.010-1.025) Urine Protein (Neg-Trace) mg/dL Urine Glucose (UA) (Normal) mg/dL Urine Ketones (Negative) mg/dL Urine Blood (Negative) Urine Nitrite (Negative) Urine Bilirubin (Negative) Urine Urobilinogen (Normal) mg/dL Ur Leukocyte Esterase (Negative) Ur Culture Indicated? (NO) 01/15/18 01/15/18 Range/Units 12:36 13:33 WBC (4.3-11.1) K/mcL RBC (3.82-4.97) M/mcL Hgb (11.5-15.4) g/dL Hct (35.3-44.9) % MCV (83.0-100.0) fL MCH (28.0-33.3) pg MCHC (31.6-35.5) g/dL RDW (11.5-14.5) % Plt Count (140-400) K/mcL MPV (9.4-12.4) fL Immature Gran % (0-4) % Seg Neutrophils % % Lymphocytes % % Monocytes % % Eosinophils % % Basophils % % Neutrophils # (1.6-8.9) K/mcL Lymphocytes # (0.6-4.6) K/mcL Monocytes # (0.0-1.3) K/mcL Eosinophils # (0.0-0.6) K/mcL Basophils # (0.0-0.2) K/mcL PT (9.4-12.1) Seconds INR Sodium (136-145) mEq/L Potassium (3.5-5.1) mEq/L Chloride (98-107) mEq/L Carbon Dioxide (23-29) mEq/L BUN (8-23) mg/dL Creatinine (0.60-1.20) mg/dL Est GFR ( Amer) (> 60) Est GFR (Non-Af Amer) (> 60) BUN/Creatinine Ratio (6-26) Glucose (70-105) mg/dL Calculated Osmolality (280-300) Calcium (8.6-10.3) mg/dL Total Bilirubin (0.3-1.0) mg/dL AST (13-39) Units/L ALT (7-52) Units/L Alkaline Phosphatase (34-104) Units/L Troponin I (< 0.04) ng/mL B-Natriuretic Peptide 281 H (Less than 100) pg/mL Serum Total Protein (6.4-8.9) g/dL Albumin (3.5-5.7) g/dL Globulin (2.4-3.5) g/dL Albumin/Globulin Ratio (1.1-2.2) Urine Color Yellow (Yellow) Urine Clarity Clear (Clear) Urine pH 6.0 (5.0-8.0) pH Units Ur Specific [place] 1.008 L (1.010-1.025) Urine Protein Negative (Neg-Trace) mg/dL Urine Glucose (UA) Normal (Normal) mg/dL Urine Ketones Negative (Negative) mg/dL Urine Blood Negative (Negative) Urine Nitrite Negative (Negative) Urine Bilirubin Negative (Negative) Urine Urobilinogen Normal (Normal) mg/dL Ur Leukocyte Esterase Negative (Negative) Ur Culture Indicated? NO (NO) Attestation Statement - Attestation Attestation: I examined this patient and my medical decision-making was reviewed with the Resident Physician. I agree with the documented findings, disposition and treatment plan as described except to the extent set forth below. 67 year old female presents to the ED with complaints of ELVIE and has a history of CHF and new t wave inversion in the lateral leads with chest pressure. We will admit to medicine.
[2018-01-15] MEDS ORDERED: Naloxone 0.4 MG/ML INJ IVP PRN ×2 (15:28→17:41)
[2018-01-15] MEDS ORDERED: Furosemide 20 MG/2 ML VIAL IVP ONE (15:33)
[2018-01-15] MEDS ORDERED: Dextrose Gel 15 GM/37.5 ML TUBE PO PRN ×2 (15:36)
[2018-01-15] MEDS ORDERED: *HR* Dextrose 50 % in Water (Syg) 50 ML SYRINGE IVP PRN (15:36)
[2018-01-15] MEDS ORDERED: D5% in Water 1,000 ML IVC PRN (15:36)
--- NOTE | 2018-01-15 15:43 | Internal Med History&Physical ---
Date of Encounter: 01/15/18 Time of Encounter: 16:09 Internal Medicine - H&P: HPI Chief complaint: chest pain (pressure) dyspnea, weight gain and BLE edema Admitted From: Long-term Nursing Facility Plans for Post Hospital Care: Transfer Care Home Care History of present illness: Ms. Armas is a 67 year old female with a PMH of arthritis, asthma, cardiomyopathy, CHF, COPD, diabetes, GERD, hyperlipidemia, hypertension, kidney stones, osteoporosis, thyroid disease, syncope, and valvular heart disease. She presents to [facility] with complaints of a one-month history of shortness of breath with chest pain, to worsen over the last 24 hours. Additionally, she states that she has been having increasing dyspnea with both rest and exertion as well as weight gain, bilateral extremity swelling, orthopnea and chest discomfort which she describes as nonradiating, dull and intermittent. She denies any URI signs or symptoms, denies any abdominal pain, nausea, vomiting, diarrhea, unilateral extremity swelling and/or pain, as well as fevers or chills. She does have congenital heart disease and follows at [facility] cardiology for which she has a follow-up appointment for a heart catheter next month for monitoring. While in the ED she was found to have 1+ pitting edema, and BNP was elevated at 281. Additionally, she was found to have serum creatinine of 1.2 for which appears to be around baseline. Initial troponin negative at less than 0.03. EKG was sinus bradycardia without any ST-T wave changes concerning for ischemia. Due to increasing dyspnea, weight gain and bilateral lower extremity swelling and appears patient is having acute exacerbation of CHF. She is being admitted for further monitoring and IV diuretics. Additionally, we will repeat troponins and place the patient on telemetry given that she has had intermittent chest discomfort. However, this time I will suspicion for ACS. Past Med Surg Social Fam HX - Past Medical History Medical history: arthritis, asthma, cardiomyopathy, CHF, COPD, diabetes, GERD, hyperlipidemia, hypertension, kidney stones, osteoporosis, thyroid disease, syncope, valvular heart disease, other Additional medical history: hypothyroidism Psychiatric history: anxiety, depression - Past Surgical History Surgical History: hysterectomy, other Additional surgical history: pyloric stenosis surgery,. kidney stone removed (urinary stent),. 2 heart caths - Social History Smoking Status: Never smoker Smokeless Tobacco Status: No Alcohol use: none Drug use: none - Family History Mother Living Status: Hx Family Cardiac Disorders: Yes Hx Family Respiratory Disorders: Yes Hx Family Cancer: Yes (breast) Hx Family GI Disorders: No Hx Family Endocrine Disorder: No Hx Family Neuromuscular Disorders: Yes (TIA) Hx Family Neurologic Disorders: No Hx Family HEENT Disorders: No Hx Family Autoimmune Disorders: No Father Living Status: Hx Family Cardiac Disorders: Yes (father,self) Hx Family Respiratory Disorders: Yes (sister) Hx Family Cancer: Yes (brother,sister) Hx Family GI Disorders: No Hx Family Endocrine Disorder: Yes (self,son) Hx Family Neuromuscular Disorders: No Hx Family Neurologic Disorders: Yes (mother) Hx Family HEENT Disorders: No Hx Family Autoimmune Disorders: No Internal Medicine - H&P: Meds Albuterol Sulfate [Albuterol Inhaler] 2 puff IH Q6H PRN 05/30/16 [History] Aspirin Enteric Coated [Aspirin EC] 81 mg PO DAILY 05/30/16 [History] BuPROPion XL (24 HR) [Wellbutrin Xl] 150 mg PO BID 05/30/16 [History] Ergocalciferol (VITAMIN D2) [Vitamin D2] 50,000 unit PO TH 05/30/16 [History] Flaxseed/Omega3,6,9/Fatty Acid [Flax Seed Oil 1,300 mg Softgel] 1 each PO BID 05/30/16 [History] Insulin NPH Human Isophane [Novolin N] 40 unit SQ BID 05/30/16 [History] Multivit-Min/Folic Acid/Vit K1 [Multi For Her 50 Plus Softgel] 1 each PO DAILY 05/30/16 [History] Vitamin B Complex 1 each PO QMWFSA 05/30/16 [History] Carvedilol 12.5 mg PO BID 08/09/16 [History] Furosemide [Lasix] 40 mg PO DAILY 08/09/16 [History] Citalopram Hydrobromide [Citalopram HBr] 10 mg PO DAILY 01/15/18 [History] Insulin Regular, Human [Novolin R] 20 unit SQ TID 01/15/18 [History] Lisinopril [Zestril] 10 mg PO DAILY 01/15/18 [History] Montelukast [Singulair] 10 mg PO DAILY 01/15/18 [History] Pregabalin [Lyrica] 75 mg PO BID 01/15/18 [History] Allergy/AdvReac Type Severity Reaction Status Date / Time cephalexin [From Keflex] Allergy Rash Verified 10/23/17 13:45 ciprofloxacin [From Cipro] Allergy Rash Verified 10/23/17 13:45 Sulfa (Sulfonamide Allergy Rash Verified 10/23/17 13:45 Antibiotics) tetanus immune globulin Allergy See Verified 10/23/17 13:45 Comments codeine AdvReac Hallucinati Verified 10/23/17 13:45 ng All Systems PM: A 10-system review of systems was performed and is negative for pertinent findings except as documented above in the HPI. Review of systems: REVIEW OF SYSTEMS GENERAL: Negative for any nausea, vomiting, fevers, chills, or weight loss. NEUROLOGIC: Negative for any blurry vision, blind spots, double vision, facial asymmetry, dysphagia, dysarthria, hemiparesis, hemisensory deficits, vertigo, ataxia. HEENT: Negative for any head trauma, neck trauma, neck stiffness, photophobia, phonophobia, sinusitis, rhinitis. CARDIAC: Negative for any paroxysmal nocturnal dyspnea. Positive for chest pain, dyspnea on exertion, orthopnea, bilateral lower extremity swelling PULMONARY: Negative wheezing, or cough GASTROINTESTINAL: Negative for any abdominal pain, nausea, vomiting, bright red blood per rectum, melena. GENITOURINARY: Negative for any dysuria, hematuria, incontinence. HEMATOLOGIC: Negative for any abnormal bruising, frequent infections or bleeding. - Constitutional Constitutional: no chills, no fever(s), no weight loss - Cardiovascular Cardiovascular ROS IM: chest pain (pressure) - Constitutional Vitals: Temp Pulse Resp BP Pulse Ox 98.9 F 59 18 143/49 96 01/15/18 12:01 01/15/18 12:01 01/15/18 12:01 01/15/18 12:01 01/15/18 12:06 General appearance: Present: cooperative, A&O X 3, morbidly obese, no acute distress, answers questions appropriately Exam: SEE EXAM - Head Head exam: Present: atraumatic, normocephalic - Eye Eye exam: Present: EOMI, PERRL, conjuntiva pink, sclera anicteric Pupils: Present: PERRL - Neck Neck exam general surgery: Present: supple, trachea midline. Absent: lymphadenopathy - Respiratory Respiratory exam: Present: decreased breath sounds, CTAB. Absent: accessory muscle use, chest wall tenderness, rales, respiratory distress, rhonchi, wheezes, tachypnea Additional comments: Resting comfortably on room air - Cardiovascular Cardiovascular exam: Present: bradycardia, RRR, +S1, +S2, systolic murmur. Absent: diastolic murmur, gallop, irregular rhythm, JVD, rubs, tachycardia - GI/Abdominal GI/Abdominal exam: Present: normal bowel sounds, soft, no peritoneal signs. Absent: distended, tenderness - Extremities Exam Extremities exam: Present: pedal edema (1+ bilateral pitting edema), warm, radial pulses palpable and symmetrical. Absent: calf tenderness, cyanotic - Expanded Lower Extremities Exam Lower Leg exam: Present: swelling (Bilateral 1+ pitting edema) - Neurological Exam Neurological exam: Present: alert, CN II-XII intact, oriented X3, no focal deficits. Absent: pronater drift, facial droop, speech deficit - Skin Skin exam: Present: dry, intact Internal Med - H&P Results - Labs CBC & Chem 7: 01/15/18 12:36 01/15/18 12:36 Labs: Short CBC 01/15/18 Range/Units 12:36 WBC 7.6 (4.3-11.1) K/mcL Hgb 12.0 (11.5-15.4) g/dL Hct 37.7 (35.3-44.9) % Plt Count 235 (140-400) K/mcL Neutrophils # 5.1 (1.6-8.9) K/mcL BMP 01/15/18 12:36 Sodium 141 Potassium 4.0 Chloride 107 Carbon Dioxide 26 BUN 26 H Creatinine 1.24 H Glucose 63 L Calcium 9.6 Cardiac Enzymes 01/15/18 Range/Units 12:36 Troponin I < 0.03 (< 0.04) ng/mL Liver Function 01/15/18 Range/Units 12:36 Total Bilirubin 0.4 (0.3-1.0) mg/dL AST 15 (13-39) Units/L ALT 12 (7-52) Units/L Alkaline Phosphatase 59 (34-104) Units/L Albumin 3.6 (3.5-5.7) g/dL Urine 01/15/18 Range/Units 13:33 Urine Color Yellow (Yellow) Urine Clarity Clear (Clear) Urine pH 6.0 (5.0-8.0) pH Units Ur Specific [place] 1.008 L (1.010-1.025) Urine Protein Negative (Neg-Trace) mg/dL Urine Glucose (UA) Normal (Normal) mg/dL - EKG Data -: EKG Interpreted by Myself EKG shows normal: sinus rhythm Rate: bradycardia - EKG Data Prior EKG available for review: no - Impressions ITS Impressions Chest X-Ray 01/15/18 12:18 IMPRESSION: No acute process. D/ / Branden Vaughn MD / Branden Vaughn MD Interpreting Provider: Branden Vaughn MD - Assessment and plan (1) Acute exacerbation of CHF (congestive heart failure) Current Visit: Yes Status: Acute Assessment and plan: Diastolic heart failure preserved LV function NYHA class II Dyspnea at rest and with exertion, bilateral lower extremity swelling and 1+ pitting edema, orthopnea Patient with congenital heart disease and valvular dysfunction as well as diastolic dysfunction Give IV Lasix 1 dose now then resume oral Lasix daily starting tomorrow Strict I's and O's and daily weights Fluid restriction 1.5 L daily O2 per nasal cannula for respiratory support go to keep SPO2 greater than 92% Telemetry Continuous SPO2 monitoring Qualifiers: Heart failure type: diastolic Qualified Code(s): I50.33 - Acute on chronic diastolic (congestive) heart failure (2) Diabetes Current Visit: Yes Status: Acute Assessment and plan: History of DM 2 Continue basal insulin at home dose Start sliding scale low-dose AC/HS Accu-Cheks Adjust sliding scale coverage as needed Qualifiers: Diabetes mellitus type: type 2 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 Mild to moderate concentric left ventricular hypertrophy. Diastolic dysfunction with elevated filling pressures. Subaortic membrane is visualized (previously seen on [facility] 02/14/2016) in the 5-CH view. There is an associated dynamic resting LVOT obstruction with PG 24 mmHg. Normal right ventricular structure and function. Moderate, turbulent aortic regurgitation. Increased aortic valve gradients - PV 3.6m/s, MG 30 mmHg. Unable to calculate DI or MAGALY by Continuity using LVOT. Mild mitral regurgitation. Mild mitral stenosis, MG 4 mmHg at 79 bpm. Mild-moderate tricuspid regurgitation. Mild pulmonic regurgitation. Severe pulmonary hypertension. (4) Chest pain Current Visit: Yes Status: Acute Assessment and plan: Reporting intermittent chest pain This is occurring in the setting of what appears to be in acute exacerbation of CHF EKG without any ST-T wave changes concerning for ischemia; initial troponin negative Continue on telemetry Serial troponins Chest pain-free at this time History of congenital heart disease, recent echo 08/19/17 Referring from stress test at this time Qualifiers: Chest pain type: unspecified Qualified Code(s): R07.9 - Chest pain, unspecified (5) HTN (hypertension) Current Visit: No Status: Acute Assessment and plan: History of hypertension, resume anti-HTN medications. Controlled at this time Qualifiers: Hypertension type: essential hypertension Qualified Code(s): I10 - Essential (primary) hypertension (6) Morbid obesity with BMI of 40.0-44.9, adult Current Visit: No Status: Chronic Assessment and plan: Discussed lifestyle modifications including weight loss and dietary changes (7) NIKOS (obstructive sleep apnea) Current Visit: No Status: Chronic Assessment and plan: Continue CPAP while inpatient - Time Spent With Patient Total time spent is greater than 50% in coordination of care (as documented) at patient's floor/unit and/or counseling patient: less than 15 minutes
[2018-01-15] MEDS: Insulin LISPRO 300 UNITS/3 ML VIAL SQ SCH (16:31)
[2018-01-15] MEDS: Pregabalin 75 MG CAPSULE PO SCH (20:17)
[2018-01-15] MEDS: BuPROPion XL (24 HR) 150 MG TABLET PO SCH (20:17)
[2018-01-15] MEDS: (Flaxseed/Omega3,6,9/Fatty Acid [Flax Seed Oil 1,300 PO SCH (20:21)
[2018-01-15] MEDS ORDERED: Insulin LISPRO 300 UNITS/3 ML VIAL SQ SCH (21:00)
[2018-01-16 01:55] LABS: Calcium 9.8 mg/dL (8.6-10.3); Potassium 4.1 mEq/L (3.5-5.1)
--- NOTE | 2018-01-16 06:50 | Electrocardiograph Report ---
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
[2018-01-16] MEDS ORDERED: *HR* Enoxaparin 40 MG/0.4 ML SYRINGE SQ SCH (07:00)
[2018-01-16] MEDS ORDERED: Insulin NPH 100 UNIT/ML (x5UNIT) SQ SCH (07:30)
[2018-01-16 07:43] VITALS: BP 129/61
[2018-01-16] MEDS: Pregabalin 75 MG CAPSULE PO SCH (08:22)
[2018-01-16] MEDS: BuPROPion XL (24 HR) 150 MG TABLET PO SCH (08:24)
[2018-01-16] MEDS: Insulin LISPRO 300 UNITS/3 ML VIAL SQ SCH (08:25)
[2018-01-16] MEDS: (Flaxseed/Omega3,6,9/Fatty Acid [Flax Seed Oil 1,300 PO SCH (08:49)
[2018-01-16] MEDS ORDERED: Multivit/Ca/Min/Fe/FA 1 TAB TABLET PO SCH (09:00)
[2018-01-16] MEDS ORDERED: Furosemide 40 MG TABLET PO SCH (09:00)
[2018-01-16] MEDS ORDERED: Aspirin Enteric Coated 81 MG Tablet PO SCH (09:00)
--- NOTE | 2018-01-16 10:29 | Discharge Summary ---
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9, adult Priority: Secondary Status: Chronic (7) NIKOS (obstructive sleep apnea) Priority: Secondary Status: Chronic Hospital course: Ms. Armas is a 67 year old female who presented with difficulty in breathing occurring gradually over one month but worsening over the last 24 hours. She had an elevated BNP of 281 and bilateral +1 pitting lower extremity edema. Diagnosis acute exacerbation of congestive heart failure. She was treated with additional IV Lasix and symptoms dramatically improved overnight. She is resting comfortably on room air without any respiratory distress and is able to ambulate around the unit without hypoxia. Additionally, there was concern as the patient is reporting intermittent chest pressure on arrival. However, this resulted in the ED and has not returned throughout stay. ECG tracings without any acute ST-T wave changes concerning for ischemia, troponins adynamic and negative 3. She reports that she has recently ran out of her Lasix and this likely prompted her increase in weight, shortness of breath and extremity swelling. She is being discharged in stable condition. She has had an uneventful hospital course. I will send her home with a one-month prescription of home dose of Lasix. She has been instructed to follow-up with her PCP within one week. She has been given education regarding a fluid restriction diet and low-sodium diet as well as obtaining daily weights. She has been instructed to return to the ED should she began to experience shortness of breath, increased bilateral lower extremity swelling, weight gain. The patient verbalized understanding denies any further questions at this time. Discharge discussed with: patient, nurse - Time Spent with Patient Total time spent providing and/or coordinating discharge services: Less than 30 minutes - Discharge Medications Prescriptions: Furosemide [Lasix] 40 mg PO DAILY 30 Days #30 tablet Home Medications: Albuterol Sulfate [Albuterol Inhaler] 2 puff IH Q6H PRN 05/30/16 [History] Aspirin Enteric Coated [Aspirin EC] 81 mg PO DAILY 05/30/16 [History] BuPROPion XL (24 HR) [Wellbutrin Xl] 150 mg PO BID 05/30/16 [History] Ergocalciferol (VITAMIN D2) [Vitamin D2] 50,000 unit PO TH 05/30/16 [History] Flaxseed/Omega3,6,9/Fatty Acid [Flax Seed Oil 1,300 mg Softgel] 1 each PO BID 05/30/16 [History] Insulin NPH Human Isophane [Novolin N] 40 unit SQ BID 05/30/16 [History] Multivit-Min/Folic Acid/Vit K1 [Multi For Her 50 Plus Softgel] 1 each PO DAILY 05/30/16 [History] Vitamin B Complex 1 each PO QMWFSA 05/30/16 [History] Carvedilol 12.5 mg PO BID 08/09/16 [History] Citalopram Hydrobromide [Citalopram HBr] 10 mg PO DAILY 01/15/18 [History] Insulin Regular, Human [Novolin R] 20 unit SQ TID 01/15/18 [History] Lisinopril [Zestril] 10 mg PO DAILY 01/15/18 [History] Montelukast [Singulair] 10 mg PO DAILY 01/15/18 [History] Pregabalin [Lyrica] 75 mg PO BID 01/15/18 [History] Furosemide [Lasix] 40 mg PO DAILY 30 Days #30 tablet 01/16/18 [Rx] Allergies/Adverse Reactions: Allergy/AdvReac Type Severity Reaction Status Date / Time cephalexin [From Keflex] Allergy Rash Verified 10/23/17 13:45 ciprofloxacin [From Cipro] Allergy Rash Verified 10/23/17 13:45 Sulfa (Sulfonamide Allergy Rash Verified 10/23/17 13:45 Antibiotics) tetanus immune globulin Allergy See Verified 10/23/17 13:45 Comments codeine AdvReac Hallucinati Verified 10/23/17 13:45 ng Date of admission: 01/15/18 14:34 Primary care physician: Deny Thomas MD Consults: 01/15/18 17:14 Consult to Pastoral Services [CONS] Routine Comment: Discharging clinician: Jace Castro Anticipated date of discharge: 01/16/18 - Constitutional Vitals: Temp Pulse Resp BP Pulse Ox 98.0 F 65 16 129/61 95 01/16/18 07:42 01/16/18 07:42 01/16/18 07:42 01/16/18 07:42 01/16/18 08:55 General appearance: Present: cooperative, A&O X 3, morbidly obese, no acute distress, answers questions appropriately Exam: see exam - Head Head exam: Present: atraumatic, normocephalic - Eye Eye exam: Present: PERRL, conjuntiva pink, sclera anicteric Pupils: Present: PERRL - Neck Neck exam general surgery: Present: supple, trachea midline. Absent: lymphadenopathy - Respiratory Respiratory exam: Present: CTAB. Absent: accessory muscle use, rales, rhonchi, wheezes - Cardiovascular Cardiovascular exam: Present: RRR, +S1, +S2. Absent: diastolic murmur, gallop, rubs, systolic murmur - GI/Abdominal GI/Abdominal exam: Present: normal bowel sounds, soft, no peritoneal signs. Absent: distended, tenderness - Extremities Exam Extremities exam: Present: warm, radial pulses palpable and symmetrical. Absent: calf tenderness, cyanotic, pedal edema - Neurological Exam Neurological exam: Present: CN II-XII intact, oriented X3, no focal deficits. Absent: pronater drift, facial droop, speech deficit - Skin Skin exam: Present: dry, intact - Patient Status Disposition: Home, Self-Care Condition: Fair Functional capacity at discharge: independent ambulation Overall status at discharge: patient is back to baseline - Discharge Instructions Instructions: Heart Failure (DC), Diabetes Mellitus Type 2 in Adults (DC) Follow Up With: Deny Thomas MD [Primary Care Provider] - - Diet and Activity Activity: increase activity as tolerated, resume usual activities as tolerated Diet: diabetic diet, low fat, low cholesterol, low salt diet
[2018-01-17] MEDS ORDERED: Vitamin B Complex/Vit C/Vit E 1 EACH TABLET PO SCH (09:00)
== END 2018-01-16 12:59 | disposition home or self-care (01) ==
LOC: 3NENU 12:00 → EMEROOARM 12:00 → 3NENU 16:09
PROVIDERS: ADMIT Internal Medicine; ATTEND Internal Medicine